=== PATIENT | female | born 1985 | race Caucasian/White ===

== ENCOUNTER 2018-04-18 21:07 | Emergency (ER) | payer OTHER ==
[2018-04-18 21:17] VITALS: TEMP 98.8
[2018-04-18] MEDS ORDERED: SODIUM CHLORIDE 0.9% 1,000 ML IV STA (21:22)
[2018-04-18 22:02] LABS: Basophils % (A) 0 %; Eosinophils # (A) 0.2 k/uL (0-0.7); Eosinophils % (A) 2 %; HCT 38.9 % (34.0-46.0); HGB 12.5 gm/dL (11.4-16.0); Lymphocytes % (A) 26 %; MCHC 32.2 g/dL (31.0-37.0); MCV 90.2 fL (80.0-100.0); Monocytes # (A) 0.3 k/uL (0-1.0); Monocytes % (A) 4 %; Neutrophils % (A) 66 %; Platelet Count 165 k/uL (150-450); RBC 4.31 m/uL (3.80-5.40); RDW 12.9 % (11.5-15.5); WBC 7.5 k/uL (3.8-10.6)
[2018-04-18 22:12] LABS: ALT 23 U/L (9-52); AST 30 U/L (14-36); Albumin 4.1 g/dL (3.5-5.0); Alkaline Phosphatase 70 U/L (38-126); Anion Gap 7 mmol/L; Blood Urea Nitrogen 11 mg/dL (7-17); Calcium 9.1 mg/dL (8.4-10.2); Carbon Dioxide 23 mmol/L (22-30); Chloride 111 mmol/L (98-107); Glucose 93 mg/dL (74-99); Magnesium 1.8 mg/dL (1.6-2.3); Sodium 141 mmol/L (137-145); Total Bilirubin 0.4 mg/dL (0.2-1.3); Total Protein 6.9 g/dL (6.3-8.2)
[2018-04-18 22:16] LABS: D-Dimer 0.29 mg/L FEU (<0.60); INR 1.1 (<1.2); Partial Thromboplastin Time 26.4 sec (22.0-30.0); Prothrombin Time 10.3 sec (9.0-12.0)
--- NOTE | 2018-04-18 22:29 | XR ---
EXAMINATION TYPE: XR chest 2V DATE OF EXAM: 04/18/2018 COMPARISON: 07/28/2016 HISTORY: Chest pain TECHNIQUE: Frontal and lateral views of the chest are obtained. FINDINGS: Heart and mediastinum are normal. Lungs are clear of consolidation. Costophrenic angles ar e clear. There are chest leads. Bony thorax is intact. IMPRESSION: No active cardiopulmonary disease. No significant change.
[2018-04-18 22:55] VITALS: BP 122/66; PULSE 95; RESP 18
--- NOTE | 2018-04-18 23:29 | ED ---
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 She presents the emergency department today for evaluation of palpitations chest pain. Patient reports that earlier in the day she began experiencing some palpitations, she then noted she had a little bit of pressure in her left chest radiating to her neck. This persisted throughout the evening which made her somewhat anxious so she came to the ER for evaluation. Patient reports she feels as though her heart is racing, this has not happened to her since she had her ablation 2 years ago. Patient denies any recent fevers, chills, nausea, vomiting, shortness of breath , diaphoresis or lightheadedness. The patient also states that she did drink some tea today and she is not usually a caffeine drinker, she also expresses concern that she may be somewhat dehydrated. Review the patient has no known cardiac history. She has no history of coronary artery disease, [place]. She is on control and she is a smoker. She has no recent immobilizations, no swelling of her lower extremities, no history of DVT or PE. - Related Data Home Medications Medication Instructions Recorded Confirmed No Known Home Medications 04/18/18 04/18/18 Allergies Allergy/AdvReac Type Severity Reaction Status Date / Time Penicillins Allergy Rash/Hives Verified 04/18/18 21:17 Review of Systems ROS Statement: Those systems with pertinent positive or pertinent negative responses have been documented in the HPI. ROS Other: All systems not noted in ROS Statement are negative. Past Medical History Additional Past Medical History / Comment(s): Tong Bunch White, Cardiac Ablation History of Any Multi-Drug Resistant Organisms: None Reported Past Surgical History: Appendectomy Additional Past Surgical History / Comment(s): Patient has had a cone biopsy the cervix and she is also had a cardiac ablation. Past Anesthesia/Blood Transfusion Reactions: Postoperative Nausea & Vomiting ( PONV) Past Psychological History: No Psychological Hx Reported Smoking Status: Current every day smoker Past Alcohol Use History: Occasional Past Drug Use History: None Reported - Past Family History Mother Family Medical History: Thyroid Disorder Additional Family Medical History / Comment(s): Hypothryoid General Exam - General Exam Comments Initial Comments: GENERAL: Patient is well-developed and well-nourished. Patient is nontoxic and well- hydrated and is in no distress. HENT: Normocephalic, Atraumatic. Neck is soft and supple. No significant lymphadenopathy is noted. Oropharynx is clear. Moist mucous membranes. Neck has full range of motion without eliciting any pain. EYES: The sclera were anicteric and conjunctiva were pink and moist. Extraocular movements were intact and pupils were equal round and reactive to light. Eyelids were unremarkable. PULMONARY: Unlabored respirations. Good breath sounds bilaterally. No audible rales rhonchi or wheezing was noted. CARDIOVASCULAR: There is a regular rate and rhythm without any murmurs gallops or rubs. Heart rate in the 90s upon initial evaluation, extremities warm and well-perfused with strong radial DP and PT pulses bilaterally ABDOMEN: Soft and nontender with normal bowel sounds. SKIN: Skin is clear with no lesions or rashes and otherwise unremarkable. NEUROLOGIC: Patient is alert and oriented x3. Cranial nerves II through XII are grossly intact. Motor and sensory are also intact. Normal speech, volume and content. Symmetrical smile. MUSCULOSKELETAL: Normal extremities with adequate strength and full range of motion. No lower extremity swelling or edema. No calf tenderness. LYMPHATICS: No significant lymphadenopathy is noted PSYCHIATRIC: Normal psychiatric evaluation. Limitations: no limitations Limitations: no limitations Course Vital Signs 04/18/18 04/18/18 21:15 22:53 Temperature 98.8 F Pulse Rate 109 H 95 Respiratory 20 18 Rate Blood Pressure 152/79 122/66 O2 Sat by Pulse 100 98 Oximetry EKG Findings - EKG Comments: EKG Findings:: EKG obtained at 2122, rate is 101, rhythm is sinus tachycardia, there is a normal axis, there are normal intervals, IL 124, QRS 104, QTC is 464 , there is no sloping or slurring of the IL, there is not a short IL, there is no evidence of WPW on this EKG. When compared to previous this EKG does not have the shortened IL and upsloping of the IL segment noted in previous EKGs. No evidence of acute ischemia or infarction. Medical Decision Making - Medical Decision Making She was seen and evaluated, history is obtained from patient and review of medical record Steroids and palpitations has a history of diabetes PW which was ablated 2 years ago. Has not had any symptoms since that time. KG was sinus tachycardia no evidence of dirty PW noted on this EKG. Patient does take oral control and is a cigarette smoker. Cardiac workup as well as d-dimer was ordered 1 L IV fluid was given The patient was reevaluated after IV fluids her heart rate has improved to the 80s to 90s, she reports no further palpitations, she does express concern she may have been dehydrated Labs and imaging were reviewed, troponin, d-dimer negative, normal kidney function, normal electrolytes Results were discussed with the patient who expresses relief and is comfortable with the plan for discharge home. Patient dates that she usually sees her junior network engineer once a year and is due to see him in May, she will call his office on Thursday to establish in her follow-up. All questions pertaining care were answered, return parameters were discussed patient was discharged home in stable condition. - Lab Data Result diagrams: 04/18/18 21:45 04/18/18 21:45 Lab Results 04/18/18 04/18/18 04/18/18 Range/Units 21:45 21:45 21:45 WBC 7.5 (3.8-10.6) k/uL RBC 4.31 (3.80-5.40) m/uL Hgb 12.5 (11.4-16.0) gm/dL Hct 38.9 (34.0-46.0) % MCV 90.2 (80.0-100.0) fL MCH 29.0 (25.0-35.0) pg MCHC 32.2 (31.0-37.0) g/dL RDW 12.9 (11.5-15.5) % Plt Count 165 (150-450) k/uL Neutrophils % 66 % Lymphocytes % 26 % Monocytes % 4 % Eosinophils % 2 % Basophils % 0 % Neutrophils # 5.0 (1.3-7.7) k/uL Lymphocytes # 2.0 (1.0-4.8) k/uL Monocytes # 0.3 (0-1.0) k/uL Eosinophils # 0.2 (0-0.7) k/uL Basophils # 0.0 (0-0.2) k/uL PT 10.3 (9.0-12.0) sec INR 1.1 (<1.2) APTT 26.4 (22.0-30.0) sec D-Dimer 0.29 (<0.60) mg/L FEU Sodium 141 (137-145) mmol/L Potassium 4.0 (3.5-5.1) mmol/L Chloride 111 H (98-107) mmol/L Carbon Dioxide 23 (22-30) mmol/L Anion Gap 7 mmol/L BUN 11 (7-17) mg/dL Creatinine 0.74 (0.52-1.04) mg/dL Est GFR (CKD-EPI)AfAm >90 (>60 ml/min/1.73 sqM) Est GFR (CKD-EPI)NonAf >90 (>60 ml/min/1.73 sqM) Glucose 93 (74-99) mg/dL Calcium 9.1 (8.4-10.2) mg/dL Magnesium 1.8 (1.6-2.3) mg/dL Total Bilirubin 0.4 (0.2-1.3) mg/dL AST 30 (14-36) U/L ALT 23 (9-52) U/L Alkaline Phosphatase 70 (38-126) U/L Troponin I (0.000-0.034) ng/mL Total Protein 6.9 (6.3-8.2) g/dL Albumin 4.1 (3.5-5.0) g/dL TSH 2.550 (0.465-4.680) mIU/L 04/18/18 Range/Units 21:45 WBC (3.8-10.6) k/uL RBC (3.80-5.40) m/uL Hgb (11.4-16.0) gm/dL Hct (34.0-46.0) % MCV (80.0-100.0) fL MCH (25.0-35.0) pg MCHC (31.0-37.0) g/dL RDW (11.5-15.5) % Plt Count (150-450) k/uL Neutrophils % % Lymphocytes % % Monocytes % % Eosinophils % % Basophils % % Neutrophils # (1.3-7.7) k/uL Lymphocytes # (1.0-4.8) k/uL Monocytes # (0-1.0) k/uL Eosinophils # (0-0.7) k/uL Basophils # (0-0.2) k/uL PT (9.0-12.0) sec INR (<1.2) APTT (22.0-30.0) sec D-Dimer (<0.60) mg/L FEU Sodium (137-145) mmol/L Potassium (3.5-5.1) mmol/L Chloride (98-107) mmol/L Carbon Dioxide (22-30) mmol/L Anion Gap mmol/L BUN (7-17) mg/dL Creatinine (0.52-1.04) mg/dL Est GFR (CKD-EPI)AfAm (>60 ml/min/1.73 sqM) Est GFR (CKD-EPI)NonAf (>60 ml/min/1.73 sqM) Glucose (74-99) mg/dL Calcium (8.4-10.2) mg/dL Magnesium (1.6-2.3) mg/dL Total Bilirubin (0.2-1.3) mg/dL AST (14-36) U/L ALT (9-52) U/L Alkaline Phosphatase (38-126) U/L Troponin I <0.012 (0.000-0.034) ng/mL Total Protein (6.3-8.2) g/dL Albumin (3.5-5.0) g/dL TSH (0.465-4.680) mIU/L Disposition Clinical Impression: Palpitations Disposition: HOME SELF-CARE Condition: Stable Instructions: Heart Palpitations (ED) Additional Instructions: Dr. Cummings's office tomorrow for follow-up, return to the ER if you have any worsening palpitations, lightheadedness or any new or concerning symptoms Avoid caffeine, chocolate and stimulants Is patient prescribed a controlled substance at d/c from ED?: No Referrals: Jordan Wasserman MD [Primary Care Provider] - 1-2 days
== END 2018-04-19 00:15 | disposition home or self-care (01) ==
LOC: EC 21:07
DX: R00.2 Palpitations (principal); R07.9 Chest pain, unspecified; R00.0 Tachycardia, unspecified; E11.9 Type 2 diabetes mellitus without complications; F17.210 Nicotine dependence, cigarettes, uncomplicated; Z88.0 Allergy status to penicillin; Z98.890 Other specified postprocedural states
CPT/HCPCS: 36415; 71046; 80053; 83735; 84443; 84484; 85025; 85379; 85610; 85730; 93005; 96360; 96361; 99285

== ENCOUNTER 2018-04-22 11:57 | Observation (INO) | payer OTHER ==
[2018-04-22] MEDS ORDERED: SODIUM CHLORIDE 0.9% 500 ML IV STA (13:11)
--- NOTE | 2018-04-22 13:16 | ED ---
General Adult HPI - General Chief complaint: Dizziness Stated complaint: Dizziness Time Seen by Provider: 04/22/18 12:35 Source: patient, RN notes reviewed Mode of arrival: wheelchair Limitations: no limitations - History of Present Illness Initial comments: This is a 33-year-old female presents to the emergency department complaining of a near syncopal episode today at work. Patient states she was here on Thursday for palpitations. Patient has a past history of Eprjm-Pfrkajrra-Uaeen she has had ablation. Patient states they did a workup on Thursday determined that she was dehydrated she saw Dr. Cummings earlier in the week and he agreed with that. Patient states today she did not feel any palpitations did not have any chest pain or shortness of breath she just started getting lightheaded and thought she might pass out. Patient states they took her vitals and she was not tachycardic. Patient states her sugar was normal as well. Patient denies any recent fever or chills. Patient is however on control pills. Patient denies any calf tenderness or leg swelling. Patient denies any abdominal pain patient denies nausea vomiting diarrhea. Patient states she is a very minimal headache nothing out of the ordinary patient denies any numbness or weakness. - Related Data Home Medications Medication Instructions Recorded Confirmed Control (Unknown Med) 1 tab PO DAILY 04/22/18 04/22/18 Allergies Allergy/AdvReac Type Severity Reaction Status Date / Time Penicillins Allergy Rash/Hives Verified 04/22/18 14:11 Review of Systems ROS Statement: Those systems with pertinent positive or pertinent negative responses have been documented in the HPI. ROS Other: All systems not noted in ROS Statement are negative. Past Medical History Additional Past Medical History / Comment(s): Fortune Parkinsons White, Cardiac Ablation History of Any Multi-Drug Resistant Organisms: None Reported Past Surgical History: Appendectomy Additional Past Surgical History / Comment(s): Patient has had a cone biopsy the cervix and she is also had a cardiac ablation. Past Anesthesia/Blood Transfusion Reactions: Postoperative Nausea & Vomiting ( PONV) Past Psychological History: No Psychological Hx Reported Smoking Status: Current every day smoker Past Alcohol Use History: Occasional Past Drug Use History: None Reported - Past Family History Mother Family Medical History: Thyroid Disorder Additional Family Medical History / Comment(s): Hypothryoid General Exam - General Exam Comments Initial Comments: GENERAL: Patient is well-developed and well-nourished. Patient is nontoxic and well- hydrated and is in mild distress. ENT: Neck is soft and supple. No significant lymphadenopathy is noted. Oropharynx is clear. Moist mucous membranes. Neck has full range of motion without eliciting any pain. EYES: The sclera were anicteric and conjunctiva were pink and moist. Extraocular movements were intact and pupils were equal round and reactive to light. Eyelids were unremarkable. PULMONARY: Unlabored respirations. Good breath sounds bilaterally. No audible rales rhonchi or wheezing was noted. CARDIOVASCULAR: There is a regular rate and rhythm without any murmurs gallops or rubs. ABDOMEN: Soft and nontender with normal bowel sounds. SKIN: Skin is clear with no lesions or rashes and otherwise unremarkable. NEUROLOGIC: Patient is alert and oriented x3. Cranial nerves II through XII are grossly intact. Motor and sensory are also intact. Normal speech, volume and content. Symmetrical smile. MUSCULOSKELETAL: Normal extremities with adequate strength and full range of motion. LYMPHATICS: No significant lymphadenopathy is noted PSYCHIATRIC: Normal psychiatric evaluation. Limitations: no limitations Course Vital Signs 04/22/18 12:35 Temperature 98.6 F Pulse Rate 82 Respiratory 18 Rate Blood Pressure 125/83 O2 Sat by Pulse 99 Oximetry Medical Decision Making - Medical Decision Making EKG shows normal sinus rhythm at 75 bpm DC interval is 94 QRS is 114 QT interval 44 QTC is 451. Patient has a delta wave which is consistent with Taisha -Parkinson-White. - Lab Data Result diagrams: 04/22/18 13:20 04/22/18 13:20 Lab Results 04/22/18 04/22/18 04/22/18 Range/Units 13:20 13:20 13:20 WBC 6.3 (3.8-10.6) k/uL RBC 4.36 (3.80-5.40) m/uL Hgb 12.8 (11.4-16.0) gm/dL Hct 38.6 (34.0-46.0) % MCV 88.4 (80.0-100.0) fL MCH 29.5 (25.0-35.0) pg MCHC 33.3 (31.0-37.0) g/dL RDW 12.8 (11.5-15.5) % Plt Count 166 (150-450) k/uL Neutrophils % 75 % Lymphocytes % 19 % Monocytes % 3 % Eosinophils % 2 % Basophils % 0 % Neutrophils # 4.7 (1.3-7.7) k/uL Lymphocytes # 1.2 (1.0-4.8) k/uL Monocytes # 0.2 (0-1.0) k/uL Eosinophils # 0.1 (0-0.7) k/uL Basophils # 0.0 (0-0.2) k/uL PT (9.0-12.0) sec INR (<1.2) APTT (22.0-30.0) sec Sodium 143 (137-145) mmol/L Potassium 4.8 (3.5-5.1) mmol/L Chloride 113 H (98-107) mmol/L Carbon Dioxide 23 (22-30) mmol/L Anion Gap 7 mmol/L BUN 7 (7-17) mg/dL Creatinine 0.68 (0.52-1.04) mg/dL Est GFR (CKD-EPI)AfAm >90 (>60 ml/min/1.73 sqM) Est GFR (CKD-EPI)NonAf >90 (>60 ml/min/1.73 sqM) Glucose 90 (74-99) mg/dL Calcium 9.3 (8.4-10.2) mg/dL Magnesium 2.0 (1.6-2.3) mg/dL Total Bilirubin 0.5 (0.2-1.3) mg/dL AST 20 (14-36) U/L ALT 16 (9-52) U/L Alkaline Phosphatase 63 (38-126) U/L Total Protein 6.8 (6.3-8.2) g/dL Albumin 3.9 (3.5-5.0) g/dL Urine Color Urine Appearance (Clear) Urine pH (5.0-8.0) Ur Specific [place] (1.001-1.035) Urine Protein (Negative) Urine Glucose (UA) (Negative) Urine Ketones (Negative) Urine Blood (Negative) Urine Nitrite (Negative) Urine Bilirubin (Negative) Urine Urobilinogen (<2.0) mg/dL Ur Leukocyte Esterase (Negative) Urine HCG, Qual Not Detected (Not Detectd) 04/22/18 04/22/18 Range/Units 13:20 13:20 WBC (3.8-10.6) k/uL RBC (3.80-5.40) m/uL Hgb (11.4-16.0) gm/dL Hct (34.0-46.0) % MCV (80.0-100.0) fL MCH (25.0-35.0) pg MCHC (31.0-37.0) g/dL RDW (11.5-15.5) % Plt Count (150-450) k/uL Neutrophils % % Lymphocytes % % Monocytes % % Eosinophils % % Basophils % % Neutrophils # (1.3-7.7) k/uL Lymphocytes # (1.0-4.8) k/uL Monocytes # (0-1.0) k/uL Eosinophils # (0-0.7) k/uL Basophils # (0-0.2) k/uL PT 10.5 (9.0-12.0) sec INR 1.1 (<1.2) APTT 24.5 (22.0-30.0) sec Sodium (137-145) mmol/L Potassium (3.5-5.1) mmol/L Chloride (98-107) mmol/L Carbon Dioxide (22-30) mmol/L Anion Gap mmol/L BUN (7-17) mg/dL Creatinine (0.52-1.04) mg/dL Est GFR (CKD-EPI)AfAm (>60 ml/min/1.73 sqM) Est GFR (CKD-EPI)NonAf (>60 ml/min/1.73 sqM) Glucose (74-99) mg/dL Calcium (8.4-10.2) mg/dL Magnesium (1.6-2.3) mg/dL Total Bilirubin (0.2-1.3) mg/dL AST (14-36) U/L ALT (9-52) U/L Alkaline Phosphatase (38-126) U/L Total Protein (6.3-8.2) g/dL Albumin (3.5-5.0) g/dL Urine Color Light Yellow Urine Appearance Clear (Clear) Urine pH 7.0 (5.0-8.0) Ur Specific [place] 1.007 (1.001-1.035) Urine Protein Negative (Negative) Urine Glucose (UA) Negative (Negative) Urine Ketones Negative (Negative) Urine Blood Negative (Negative) Urine Nitrite Negative (Negative) Urine Bilirubin Negative (Negative) Urine Urobilinogen <2.0 (<2.0) mg/dL Ur Leukocyte Esterase Negative (Negative) Urine HCG, Qual (Not Detectd) Disposition Clinical Impression: Near syncope, Hifbl-Bpsvsdrmj-Wdgdh (WPW) pattern Disposition: ADMITTED IP TO THIS HOSP Is patient prescribed a controlled substance at d/c from ED?: No Referrals: Jordan Wasserman MD [Primary Care Provider] - 1-2 days Time of Disposition: 14:28
[2018-04-22 14:01] LABS: Basophils % (A) 0 %; Eosinophils # (A) 0.1 k/uL (0-0.7); Eosinophils % (A) 2 %; HCT 38.6 % (34.0-46.0); HGB 12.8 gm/dL (11.4-16.0); Lymphocytes # (A) 1.2 k/uL (1.0-4.8); Lymphocytes % (A) 19 %; MCH 29.5 pg (25.0-35.0); MCHC 33.3 g/dL (31.0-37.0); MCV 88.4 fL (80.0-100.0); Monocytes # (A) 0.2 k/uL (0-1.0); Monocytes % (A) 3 %; Neutrophils # (A) 4.7 k/uL (1.3-7.7); Neutrophils % (A) 75 %; Platelet Count 166 k/uL (150-450); RBC 4.36 m/uL (3.80-5.40); RDW 12.8 % (11.5-15.5); WBC 6.3 k/uL (3.8-10.6)
[2018-04-22 14:03] LABS: Appearance,Urine Clear (Clear); Bilirubin,Urine Negative (Negative); Blood,Urine Negative (Negative); Color,Urine Light Yellow; Glucose,Urine (UA) Negative (Negative); Ketones,Urine Negative (Negative); Leukocyte Esterase,Urine Negative (Negative); Nitrite,Urine Negative (Negative); Protein,Urine Negative (Negative); Specific Gravity,Urine 1.007 (1.001-1.035); Urobilinogen,Urine <2.0 mg/dL (<2.0)
[2018-04-22 14:13] LABS: INR 1.1 (<1.2); Partial Thromboplastin Time 24.5 sec (22.0-30.0); Prothrombin Time 10.5 sec (9.0-12.0)
[2018-04-22 14:17] LABS: ALT 16 U/L (9-52); AST 20 U/L (14-36); Albumin 3.9 g/dL (3.5-5.0); Alkaline Phosphatase 63 U/L (38-126); Anion Gap 7 mmol/L; Blood Urea Nitrogen 7 mg/dL (7-17); Calcium 9.3 mg/dL (8.4-10.2); Carbon Dioxide 23 mmol/L (22-30); Chloride 113 mmol/L (98-107); Glucose 90 mg/dL (74-99); Potassium 4.8 mmol/L (3.5-5.1); Sodium 143 mmol/L (137-145); Total Bilirubin 0.5 mg/dL (0.2-1.3); Total Protein 6.8 g/dL (6.3-8.2)
[2018-04-22 14:30] LABS: Creatine Kinase 121 U/L (30-135)
[2018-04-22] MEDS ORDERED: SODIUM CHLORIDE 0.9% 1,000 ML IV ONE (14:31)
[2018-04-22 14:42] LABS: Creatine Kinase MB 0.5 ng/mL (0.0-2.4); Troponin I <0.012 ng/mL (0.000-0.034)
--- NOTE | 2018-04-22 18:39 | CT ---
EXAMINATION TYPE: CT brain wo con DATE OF EXAM: 04/22/2018 COMPARISON: None HISTORY: Near syncope. CT DLP: 1012.7 mGycm. Automated Exposure Control for Dose Reduction was Utilized. TECHNIQUE: CT scan of the head is performed without contrast. FINDINGS: Ventricles of normal size. There is no mass effect nor midline shift. There is no sign of i ntracranial hemorrhage. The calvarium is intact. IMPRESSION: Negative head CT scan.
--- NOTE | 2018-04-22 21:50 | P.HPIM ---
History of Present Illness H&P Date: 04/22/18 Chief Complaint: Syncope Patient is a 33-year-old female with a known history of ongoing nicotine addiction, WPW syndrome status post ablation in June 2015 and is being followed by cardiology as an outpatient came to ER with complaints of near syncope at work today. Patient felt hot while she was in a meeting and felt like tingling all over the body. Her vision does tend held and could not read as a time. Within a few minutes she felt like passing out. Patient came to ER for further evaluation. Patient went to [facility] and on Thursday and presented to ER on Thursday with increased heart rate. Patient was given IV fluids and was discharged home. Patient was seen by cardiology/EP yesterday. Patient felt okay until morning today. She is patient denied any palpitations this morning. No complaints of chest pain. No nausea vomiting or abdominal pain. No fever no chills. Denied any new medications. Patient does take control pills otherwise. Denied any leg swelling or pain. No nausea vomiting or diarrhea. No cough or sputum production. Currently denied any weakness or numbness or tingling. EKG shows short IA interval and likely delta waves. CT head negative D-dimer not elevated. Review of Systems Constitutional: Patient denies any fever or chills . No generalized weakness or weight loss. Abdomen: Patient denied nausea vomiting and diarrhea and abdominal pain. Cardiovascular: Patient denies any chest pain or short of breath no palpitations. Respiratory: patient denied any cough is from production. No shortness of breath Neurologic: Patient denied any numbness or tingling headache. Musculoskeletal: Patient denies any complaints of joint swelling or deformity. Skin: Negative Psychiatric: Negative Endocrine: No heat or cold intolerance. No recent weight gain. Genitourinary: No dysuria or hematuria. All other 14 point ROS negative except the above Past Medical History Past Medical History: Pneumonia Additional Past Medical History / Comment(s): Fortune Parkinsons White, Cardiac Ablation , anx/depression, pne age 14 History of Any Multi-Drug Resistant Organisms: None Reported Past Surgical History: Appendectomy Additional Past Surgical History / Comment(s): Patient has had a cone biopsy the cervix and she is also had a cardiac ablation. Past Anesthesia/Blood Transfusion Reactions: Postoperative Nausea & Vomiting ( PONV) Smoking Status: Current every day smoker - Past Family History Father Family Medical History: Hyperlipidemia Mother Family Medical History: Thyroid Disorder Additional Family Medical History / Comment(s): Hypothryoid ,bipolar,hiatal hernia, obesity had gastric sleeve sx Medications and Allergies Home Medications Medication Instructions Recorded Confirmed Type Control (Unknown Med) 1 tab PO DAILY 04/22/18 04/22/18 History Allergies Allergy/AdvReac Type Severity Reaction Status Date / Time Penicillins Allergy Rash/Hives Verified 04/22/18 14:11 Physical Exam Vitals: Vital Signs Temp Pulse Pulse Pulse Pulse Resp BP 04/22/18 19:30 98.3 F 81 16 04/22/18 16:17 98.0 F 72 79 78 18 04/22/18 15:30 84 18 04/22/18 12:35 98.6 F 82 18 125/83 BP BP BP Pulse Ox 04/22/18 19:30 108/66 98 04/22/18 16:17 121/77 122/76 115/72 99 04/22/18 15:30 04/22/18 12:35 99 Intake and Output 04/22/18 04/22/18 04/22/18 06:59 14:59 22:59 Intake Total 800 Balance 800 Intake: Oral 800 Other: Weight 90.718 kg 90.5 kg PHYSICAL EXAMINATION: Patient is lying in the bed comfortably, no acute distress, awake alert and oriented.. HEENT: Normocephalic. Neck is supple. Pupils reactive. Nostrils clear. Oral cavity is moist. Ears reveal no drainage. Neck reveals no JVD, carotid bruits, or thyromegaly. CHEST EXAMINATION: Trachea is central. Symmetrical expansion. Lung moreno clear to auscultation and percussion. CARDIAC: Normal S1, S2 with no gallops. No murmurs ABDOMEN: Soft. Bowel sounds normal. No organomegaly. No abdominal bruits. Extremities: reveal no edema. No clubbing or cyanosis Neurologically awake, alert, oriented x3 with well-coordinated movements. No focal deficits noted Skin: No rash or skin lesions. Psychiatric: Coperative. Nonsuicidal Musculoskeletal: No joint swelling or deformity. Normal range of motion. Results CBC & Chem 7: 04/22/18 13:20 04/22/18 13:20 Labs: Abnormal Lab Results - Last 24 Hours (Table) 04/22/18 Range/Units 13:20 Chloride 113 H (98-107) mmol/L Thrombosis Risk Factor Assmnt - DVT/VTE Prophylaxis DVT/VTE Prophylaxis: Pharmacologic Prophylaxis ordered Assessment and Plan Assessment: Near syncope likely cardiogenic/arrhythmia. 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 We'll continue the telemetry monitoring. EP evaluation. CT head is negative. Orthostatics normal. D- dimer is elevated. Further recommendations based on the clinical course. Smoking cessation has been counseled extensively. Time with Patient: Greater than 30
[2018-04-23 07:52] VITALS: PULSE 75; TEMP 98.1
--- NOTE | 2018-04-23 09:10 | P.CRDCN ---
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 Last Thursday, patient was running a marathon. Thursday, patient felt lightheaded and dizzy and went to the emergency room. She also felt that her heart was beating fast with heart rates up to 120 to 130. Patient was seen in the emergency room and was treated with IV fluids for suspected dehydration. See was seen by Dr. Cummings in the office last Thursday. Patient was clinically stable at the time. Yesterday, patient was in a meeting. She suddenly started feeling dizzy and also tingling all over the body. She developed tunnel vision. She also could not comprehend what she was visualizing. Did not have any palpitations. Apparently her vital signs are stable. At the time. The symptoms lasted for an hour or so. She was brought to the emergency room. Her EKG showed sinus rhythm without any significant arrhythmias. Patient has been stable since admission. Her symptoms appear to be noncardiac. The possibility of TIA to be considered. We' ll recommend a neurology evaluation. If her neurological workup is negative, may consider treating ALEE to rule out possibility of PFO. After neurological evaluation, if stable, patient could be discharged home. If necessary outpatient ALEE will be arranged by Dr. Cummings Review of Systems As per the chart Past Medical History Past Medical History: Pneumonia Additional Past Medical History / Comment(s): Fortune Parkinsons White, Cardiac Ablation , anx/depression, pne age 14 History of Any Multi-Drug Resistant Organisms: None Reported Past Surgical History: Appendectomy Additional Past Surgical History / Comment(s): Patient has had a cone biopsy the cervix and she is also had a cardiac ablation. Past Anesthesia/Blood Transfusion Reactions: Postoperative Nausea & Vomiting ( PONV) Smoking Status: Current every day smoker - Past Family History Father Family Medical History: Hyperlipidemia Mother Family Medical History: Thyroid Disorder Additional Family Medical History / Comment(s): Hypothryoid ,bipolar,hiatal hernia, obesity had gastric sleeve sx Medications and Allergies Home Medications Medication Instructions Recorded Confirmed Type Control (Unknown Med) 1 tab PO DAILY 04/22/18 04/22/18 History Allergies Allergy/AdvReac Type Severity Reaction Status Date / Time Penicillins Allergy Rash/Hives Verified 04/22/18 14:11 Physical Exam Vitals: Vital Signs Temp Pulse Pulse Pulse Pulse Resp BP 04/23/18 07:35 98.1 F 75 18 04/23/18 04:00 16 04/23/18 03:05 98.5 F 70 16 04/23/18 00:00 16 04/22/18 23:35 98.5 F 85 16 04/22/18 20:00 18 04/22/18 19:30 98.3 F 81 16 04/22/18 16:17 98.0 F 72 79 78 18 04/22/18 15:30 84 18 04/22/18 12:35 98.6 F 82 18 125/83 BP BP BP Pulse Ox 04/23/18 07:35 104/63 99 04/23/18 04:00 04/23/18 03:05 92/56 98 04/23/18 00:00 04/22/18 23:35 106/69 98 04/22/18 20:00 04/22/18 19:30 108/66 98 04/22/18 16:17 121/77 122/76 115/72 99 04/22/18 15:30 04/22/18 12:35 99 Intake and Output 04/22/18 04/23/18 04/23/18 22:59 06:59 14:59 Intake Total 800 Balance 800 Intake: Oral 800 Other: # Voids 1 Weight 90.5 kg GENERAL EXAM: Patient is alert and oriented and doesn't appear to be in any acute distress HEENT: Normocephalic. Normal reaction of pupils, equal size, normal range of extraocular motion. No erythema or exudates in the throat. NECK: No masses, no nuchal rigidity. CHEST: No chest wall deformity. LUNGS: Equal air entry with no crackles or wheeze. HEART: S1 and S2 normal with no audible mumurs or gallops. Regular rhythm, femorals equal on both sides.. ABDOMEN: No hepatosplenomegaly, normal bowel sounds, no guarding or rigidity. SKIN: No rashes CENTRAL NERVOUS SYSTEM: No focal deficits. EXTREMITIES: No cyanosis, clubbing or edema. Results 04/22/18 13:20 04/22/18 13:20 Cardiac Enzymes 04/22/18 04/22/18 Range/Units 13:20 13:20 AST 20 (14-36) U/L CK-MB (CK-2) 0.5 (0.0-2.4) ng/mL Troponin I <0.012 (0.000-0.034) ng/mL Coagulation 04/22/18 Range/Units 13:20 PT 10.5 (9.0-12.0) sec APTT 24.5 (22.0-30.0) sec CBC 04/22/18 Range/Units 13:20 WBC 6.3 (3.8-10.6) k/uL RBC 4.36 (3.80-5.40) m/uL Hgb 12.8 (11.4-16.0) gm/dL Hct 38.6 (34.0-46.0) % Plt Count 166 (150-450) k/uL Comprehensive Metabolic Panel 04/22/18 Range/Units 13:20 Sodium 143 (137-145) mmol/L Potassium 4.8 (3.5-5.1) mmol/L Chloride 113 H (98-107) mmol/L Carbon Dioxide 23 (22-30) mmol/L BUN 7 (7-17) mg/dL Creatinine 0.68 (0.52-1.04) mg/dL Glucose 90 (74-99) mg/dL Calcium 9.3 (8.4-10.2) mg/dL AST 20 (14-36) U/L ALT 16 (9-52) U/L Alkaline Phosphatase 63 (38-126) U/L Total Protein 6.8 (6.3-8.2) g/dL Albumin 3.9 (3.5-5.0) g/dL Intake and Output 04/22/18 04/23/18 04/23/18 22:59 06:59 14:59 Intake Total 800 Balance 800 Intake: Oral 800 Other: # Voids 1 Weight 90.5 kg 04/22/18 13:20 04/22/18 13:20 EKG Interpretations (text) Sinus rhythm with questionable delta wave which is stable compared to the post ablation EKGs Assessment and Plan (1) TIA (transient ischemic attack) Current Visit: Yes Status: Acute Code(s): G45.9 - TRANSIENT CEREBRAL ISCHEMIC ATTACK, UNSPECIFIED SNOMED Code(s): 056434019 (2) Hwcon-Egentamyy-Nwafg (WPW) pattern Current Visit: Yes Status: Acute Code(s): I45.6 - PRE-EXCITATION SYNDROME SNOMED Code(s): 51464364 Plan: I would recommend neurological evaluation. After cleared by neurology, patient could be discharged home from [facility] standpoint. Follow-up with the Dr. Cummings. Patient may be constricted for ALEE as an outpatient
[2018-04-23 11:40] VITALS: BP 105/64; RESP 16
--- NOTE | 2018-04-23 13:19 | US ---
EXAMINATION TYPE: US carotid duplex BILAT DATE OF EXAM: 04/23/2018 COMPARISON: NONE CLINICAL HISTORY: near Syncope. EXAM MEASUREMENTS: RIGHT: Peak Systolic Velocity (PSV) cm/sec ----- Right CCA: 154.9 ----- Right ICA: 87.4 ----- Right ECA: 96.2 ICA/CCA ratio: 0.6 RIGHT: End Diastole cm/sec ----- Right CCA: 38.6 ----- Right ICA: 30.9 ----- Right ECA: 10.8 LEFT: Peak Systolic Velocity (PSV) cm/sec ----- Left CCA: 150.8 ----- Left ICA: 90.7 ----- Left ECA: 76.0 ICA/CCA ratio: 0.6 LEFT: End Diastole cm/sec ----- Left CCA: 28.3 ----- Left ICA: 31.7 ----- Left ECA: 8.9 VERTEBRALS (direction of flow): Right Vertebral: Antegrade Left Vertebral: Antegrade Rhythm: Normal Grayscale images show no significant focal plaque at carotid bulb level bilaterally. There is increas ed peak systolic velocity in bilateral common carotid arteries however noted. Underlying hypertension is suspected. Correlate clinically. IMPRESSION: Probable underlying uncontrolled hypertension. No significant focal plaque or stenosis a t carotid bulb level. Criteria for Assigning % of Stenosis / Diameter reduction (Estimation based on the indirect measurements of the internal carotid artery velocities (ICA PSV). 1. Normal (no stenosis)=ICA PSV < 125 cm/s: ratio < 2.0: ICA EDV<40 cm/s. 2. Less than 50% stenosis=ICA PSV < 125 cm/s: ratio < 2.0: ICA EDV<40 cm/s. 3. 50 to 69% stenosis=ICA PSV of 125 to 230 cm/s: ration 2.0 ? 4.0: ICA EDV 40-100 cm/s. 4. Greater than 70% stenosis to near occlusion= ICA PSV > 230 cm/s: ratio > 4.0: ICA EDV > 100 cm/s. 5. Near occlusion= ICA PSV velocities may be low or undetectable: variable ratio and ICA EDV. 6. Total occlusion=unable to detect flow.
--- NOTE | 2018-04-23 15:35 | P.CNNES ---
History of Present Illness Consult date: 04/23/18 Requesting physician: Celena Conrad Reason for Consult: near syncope History of Present Illness: patient is a pleasant 33-year-old female who is being evaluated by the neurology service on 04/23/2018 per the request of Dr. Conrad for near syncope. Patient has history of [place]avag-Vhyawolod-Vpkdx syndrome and is status post ablation about 2 years ago. Patient did run a 5K last Thursday and on Thursday became lightheaded and came to the emergency room. It was determined patient was dehydrated and was given fluids and sent home. Patient did see Dr. Vu during the week and was deemed stable. Patient had episode at work yesterday where she felt lightheaded, hot, felt like her heart was racing, had tunnel vision and felt as if she was going to pass out. Patient came to the emergency room for further evaluation. Patient denies any lateralizing weakness. She does state she had a period of approximately 3 minutes where she could not comprehend what was being said nor could she read the words on her paper. She's had no recurrence of these symptoms since admission. Patient was seen by cardiology and cleared.vital signs on admission were temperature 98.6, pulse 82, respiratory rate 18, blood pressure 125/83, oxygen saturation 99% on room air. Labs on admission were unremarkable.EKG showed normal sinus rhythm with a rate of 75.Computed tomography scan of the brain was negative for any acute process. Carotid Doppler showed no significant stenosis. At the time of my evaluation, patient's resting comfortably in bed and appears to be in no acute distress. Family is at the bedside. Review of Systems REVIEW OF SYSTEMS: Otherwise unremarkable and noncontributory. Past Medical History Past Medical History: Pneumonia Additional Past Medical History / Comment(s): Fortune Parkinsons White, Cardiac Ablation , anx/depression, pne age 14 History of Any Multi-Drug Resistant Organisms: None Reported Past Surgical History: Appendectomy Additional Past Surgical History / Comment(s): Patient has had a cone biopsy the cervix and she is also had a cardiac ablation. Past Anesthesia/Blood Transfusion Reactions: Postoperative Nausea & Vomiting ( PONV) Smoking Status: Current every day smoker - Past Family History Father Family Medical History: Hyperlipidemia Mother Family Medical History: Thyroid Disorder Additional Family Medical History / Comment(s): Hypothryoid ,bipolar,hiatal hernia, obesity had gastric sleeve sx Medications and Allergies Home Medications Medication Instructions Recorded Confirmed Type Control (Unknown Med) 1 tab PO DAILY 04/22/18 04/22/18 History Allergies Allergy/AdvReac Type Severity Reaction Status Date / Time Penicillins Allergy Rash/Hives Verified 04/22/18 14:11 Physical Examination - Vital Signs Vital Signs: Vital Signs Temp Pulse Pulse Pulse Pulse Resp BP 04/23/18 11:39 98.1 F 75 16 105/64 04/23/18 08:00 18 04/23/18 07:35 98.1 F 75 18 04/23/18 04:00 16 04/23/18 03:05 98.5 F 70 16 04/23/18 00:00 16 04/22/18 23:35 98.5 F 85 16 04/22/18 20:00 18 04/22/18 19:30 98.3 F 81 16 04/22/18 16:17 98.0 F 72 79 78 18 04/22/18 15:30 84 18 BP BP BP Pulse Ox 04/23/18 11:39 97 04/23/18 08:00 04/23/18 07:35 104/63 99 04/23/18 04:00 04/23/18 03:05 92/56 98 04/23/18 00:00 04/22/18 23:35 106/69 98 04/22/18 20:00 04/22/18 19:30 108/66 98 04/22/18 16:17 121/77 122/76 115/72 99 04/22/18 15:30 Intake and Output 04/23/18 04/23/18 04/23/18 06:59 14:59 22:59 Intake Total 240 Balance 240 Intake: Oral 240 Other: # Voids 1 PHYSICAL EXAM: GENERAL APPEARANCE: Patient is a well-developed, female who appears to be in no acute distress. HEENT: Normocephalic, atraumatic, no facial asymmetry is seen. Neck is supple with no masses felt. CARDIOVASCULAR: Regular rate and rhythm. ABDOMEN: Nontender, nondistended. EXTREMITIES: Show no edema or clubbing. NEUROLOGICAL EXAM:Patient is awake, alert, and oriented 3. Speech and language are normal. Strength is full in all 4 extremities. Sensory exam is normal to light touch in all 4 extremities. No facial asymmetry is seen on cranial nerve testing. No tremors or seizure-like activity noted. Results - Laboratory Findings CBC and BMP: 04/22/18 13:20 04/22/18 13:20 Abnormal Lab Findings: Abnormal Labs 04/22/18 13:20 Chloride 113 H Assessment and Plan Plan: IMPRESSION: 1. Near syncope 2. Questionable TIA 3. History of Hadlh-Kzausxxrz-Jgwka/status post ablation Recommendation: Patient presented with symptoms of receptive and expressive aphasia lasting about 3 minutes. Patient reports feeling very drained afterward. Patient reports being back to baseline at this time. She denies any recurrence of symptoms. Computed tomography scan of the brain was negative for any abnormality. Patient has history of both Parkinson White with ablation approximately 2 years ago. Patient was seen by cardiology and cleared. Transient ischemic attack is certainly in the diagnostic differential. I doubt this is seizure activity. Outpatient workup can be done including MRI of the brain, EEG, lipid panel and serum homocysteine level. I recommend a low-dose aspirin 81 mg daily. She will follow-up in our office within the next week or 2. Patient is stable from a neurological standpoint for discharge. I will continue to follow with you on an as-needed basis. Thank you for allowing me to participate in the care of your patient. Feel free to call with any questions or concerns. I performed an examination of the patient and discussed the management with the CONCRETE PAVING MACHINE OPERATOR. I have reviewed the CONCRETE PAVING MACHINE OPERATOR notes and agree with the findings and plan of care.
[2018-04-24] MEDS ORDERED: ASPIRIN 81 MG PO SCH (09:00)
== END 2018-04-23 16:55 | disposition home or self-care (01) ==
LOC: EC 11:57 → 3OBS 14:32
PROVIDERS: ADMIT Internal Medicine; ATTEND Internal Medicine
DX: G45.9 Transient cerebral ischemic attack, unspecified (principal); R42 Dizziness and giddiness; I45.6 Pre-excitation syndrome; Z88.0 Allergy status to penicillin; F17.200 Nicotine dependence, unspecified, uncomplicated; E78.5 Hyperlipidemia, unspecified; F32.9 Major depressive disorder, single episode, unspecified; Z79.3 Long term (current) use of hormonal contraceptives
CPT/HCPCS: 96360; 96361; 99285; 36415; 93005; 85379; 80053; 82550; 82553; 83735; 84484; 85025; 85610; 85730; 81003; 81025; 93880; 70450; G0378 ×2

== ENCOUNTER → 2018-05-06 | Outpatient (CLI) | payer OTHER ==
--- NOTE | 2018-05-17 19:33 | EEG ---
ELECTROENCEPHALOGRAM REPORT SERVICE: 05/06/2018. REASON FOR TESTING: Dizziness and near syncope. DESCRIPTION OF THE PROCEDURE: This EEG was performed using a 21 channel digital electroencephalograph, following international 10-20 system. DESCRIPTION OF THE RECORDING: From the beginning of the tracing, with patient's eyes closed, the background rhythm was mostly consisting of 10 Hz alpha frequency in the posterior occipital leads. No obvious asymmetry is seen. Photic stimulation was performed with a minimal driving response seen. No pathological waves were elicited. Hyperventilation was performed with no buildup of amplitude seen. Again, no pathological waves were elicited. The patient does reach stage II of sleep during the tracing and occasional sleep spindles are seen. No epileptiform discharges were seen. Her EKG lead showed a regular rate and rhythm. INTERPRETATION: This asleep and awake EEG can be considered within normal limits. There is no asymmetry seen. No epileptiform discharges were noticed. The absence of epileptiform discharges does not rule out the diagnosis of epilepsy; therefore clinical correlation is recommended. Thank you, Dr. Wasserman for allowing me to participate in the care of your patient. If you have any questions, please feel free to contact me. [email or web address] / IJN: [id number] /
== END | disposition home or self-care (01) ==
LOC: NEUROMAIN 12:45
PROVIDERS: ATTEND Psychiatry & Neurology Neurology
DX: R41.0 Disorientation, unspecified (principal); R41.3 Other amnesia
CPT/HCPCS: 95819

== ENCOUNTER → 2018-05-19 | Outpatient (CLI) | payer OTHER ==
--- NOTE | 2018-05-20 05:35 | MR ---
EXAMINATION TYPE: MR brain wo con DATE OF EXAM: 05/19/2018 COMPARISON: CT brain April 22, 2018 HISTORY: Near Syncope per patient, TIA per order. TECHNIQUE: Multiplanar, multisequence imaging of the brain and brainstem is performed without IV cont rast. FINDINGS: Diffusion weighted images demonstrate no evidence of a recent infarct or other diffusion abnormality. There is no extraaxial fluid collection or significant white matter signal abnormality. The ventricu lar system and cisternal spaces are normal in size and appearance. The brain volume is age appropria te. Midline structures demonstrate normal morphology. The craniocervical junction appears within normal limits. Normal vascular flow voids are present. Some distortion at the level of the globes is present . Visualized paranasal sinuses are clear. IMPRESSION: Unremarkable study.
== END | disposition home or self-care (01) ==
LOC: RADMRIMAIN 18:20
PROVIDERS: ATTEND Nurse Practitioner Acute Care
DX: G45.9 Transient cerebral ischemic attack, unspecified (principal)
CPT/HCPCS: 70551

== ENCOUNTER → 2018-09-17 | Outpatient (CLI) | payer OTHER ==
--- NOTE | 2018-09-17 10:04 | US ---
EXAMINATION TYPE: Transabdominal DATE OF EXAM: 11/03/17 COMPARISON: NONE CLINICAL HISTORY: 46.91 BLEEDING. Spotting last night, red in color, EXAM PERFORMED: OBTA EXAM MEASUREMENTS: GESTATIONAL AGE / DATING Physician Established: (8 weeks/3 days) EDC: 04/26/2019 Dates by LMP: LMP unknown Dates by First Scan: No previous this is first scan Dates by Current Scan for: (8 weeks/5 days) EDC: 04/24/2019 MATERNAL ANATOMY Uterus: 12.5 x 8.6 x 6.1cm Right Ovary: not seen due to bowel gas Left Ovary: 3.1 x 2.8 x 2.7cm Post CDS / Adnexa: wnl Presence of free fluid: no Presence of corpus luteal cyst: yes left = 2.2cm Presence of subchorionic bleed: 3.0cm curvilinear posterior implantation bleed. This occupies approxi mately 25% the gestational sac diameter. GESTATION / SURVEY CRL: 2.1cm (8 weeks/5 days) MSD: wnl Yolk Sac (normal less than 6mm): not seen Heart Rate: 178 bpm Rhythm: Normal IUP: Viable IUP Date of LMP: unknown Beta HcG (if available): not available * tech impression given to Jaswant at office IMPRESSION: 1. Single live intrauterine with a calculated sonographic age of 8 weeks and 5 days and est imated date of delivery of 04/24/2019, concordant with menstrual age. 2. 3.0 cm implantation bleed occupying approximately 25% the gestational sac diameter. Note the heart rate is upper limits of normal.
== END | disposition home or self-care (01) ==
LOC: RADUSWWP 09:05
PROVIDERS: ATTEND Obstetrics & Gynecology
DX: O46.91 Antepartum hemorrhage, unspecified, first trimester (principal); Z3A.08 8 weeks gestation of pregnancy
CPT/HCPCS: 36415; 76801; 84702; 86850; 86900; 86901

== ENCOUNTER → 2018-10-20 | Outpatient (CLI) | payer OTHER ==
[2018-10-20 09:18] LABS: HCT 35.9 % (34.0-46.0); HGB 11.6 gm/dL (11.4-16.0); MCHC 32.4 g/dL (31.0-37.0); MCV 89.3 fL (80.0-100.0); Mean Platelet Volume 9.1; Platelet Count 130 k/uL (150-450); RBC 4.02 m/uL (3.80-5.40); RDW 13.6 % (11.5-15.5); WBC 6.8 k/uL (3.8-10.6)
[2018-10-20 17:30] LABS: Hemoglobin A1C 5.1 % (4.0-6.0)
[2018-10-20 17:59] LABS: HIV 1 AB Non-Reactive (Non-Reactive); HIV AB P24 Non-Reactive (Non-Reactive); HIV P24 AG Non-Reactive (Non-Reactive)
== END | disposition home or self-care (01) ==
LOC: LABWHC1 07:51
PROVIDERS: ATTEND Obstetrics & Gynecology
DX: Z34.81 Encounter for supervision of other normal pregnancy, first trimester (principal); Z3A.00 Weeks of gestation of pregnancy not specified
CPT/HCPCS: 36415; 82950; 83036; 85027; 86762; 86780; 86850; 86900; 86901; 87086; 87340; 87390

== ENCOUNTER 2019-04-04 11:34 | Outpatient (CLI) | payer OTHER ==
[2019-04-04 12:50] VITALS: BP 122/62; PULSE 88; RESP 16; TEMP 97.9
--- NOTE | 2019-04-04 13:07 | US ---
EXAMINATION TYPE: US OB >= 14 wk fetus DATE OF EXAM: 04/04/2019 COMPARISON: None CLINICAL HISTORY: no FHTNo heart tones.Growth and heart tones only per Dr. Galan. Doctor presen t during exam. TECHNIQUE: Transabdominal (TA) GESTATIONAL AGE / DATING Physician Established: (37 weeks/0 days) EDC: 04/24/2019 Dates by Current Scan: (37 weeks/4 days) EDC: 04/21/2019 SURVEY IUP: Single BIOMETRY PRESENTATION: Breech BPD: 9.65 cm 39 weeks / 3 days HC: 35.06 cm 40 weeks / 6 days AC: 36.93 cm 40 weeks / 6 days FL: 6.67 cm 34 weeks / 2 days ESTIMATED WEIGHT IN GRAMS: 3774 grams ESTIMATED WEIGHT IN LBS/OZ: 8 lbs. 5 oz. HC/AC: 0.95cm Normal FL/AC: 18.06 cm Abnormal HEART RATE: No heart tones. demise no heart tones. IMPRESSION: Sonographic findings of demise as no heart tones are seen on the examination. In the submitted images only minimal amniotic fluid is seen. It is noted that the ordering physician was present at the time of the examination.
--- NOTE | 2019-04-07 13:38 | P.MSEPDOC ---
Presenting Problems - Arrival Data Date of Arrival on Unit: 04/04/19 Time of Arrival on Unit: 11:34 Mode of Transport: Ambulatory - Complaint OB-Reason for Admission/Chief Complaint: Decreased Movement Comment: No movement since 0000 Medical History - Information : 4 Para: 3 Term: 3 : 0 Abortions: Spontaneous or Elective: 0 Number of Living Children: 3 - Gestational Age Gestational Age by NEIL (wks/days): 36 Weeks and 6 Days - History Complications: Smoker Review of Systems - Review of Systems Constitutional: No problems Breast: No problems ENT: No problems Cardiovascular: No problems Respiratory: No problems Gastrointestinal: No problems Genitourinary: No problems Musculoskeletal: No problems Neurological: No problems Skin: No problems Vital Signs - Temperature Temperature: 97.9 F Temperature Source: Oral - Pulse Right Sitting Brachial Pulse Rate: 88 Pulse Assessment Method: Automatic Cuff - Respirations Respiratory Rate: 16 Oxygen Delivery Method: Room Air O2 Sat by Pulse Oximetry: 96 - Blood Pressure Right Arm Sitting Blood Pressure: 122/62 Blood Pressure Mean: 82 Blood Pressure Source: Automatic Cuff Medical Screen Scoring (Pre) - Cervical Exam Dilation: 1-3 cm = 1 Effacement: Exam Deferred Membranes: Intact - Uterine Contractions Frequency: > 5 minutes apart = 1 Duration: > 40 seconds = 2 Intensity: N/A - Maternal Vital Signs Maternal Temperature: N/A Maternal Blood Pressure: N/A Signs of Preeclampsia: N/A Maternal Respirations: N/A - Maternal Trauma Maternal Trauma: N/A - Assessment - Baby A NST: Unable to detect FHT's = 10 - Total Score - Baby A Total Score - Baby A: 14 - Total Score - Baby B Total Score - Baby B: 4 - Total Score - Baby C Total Score - Baby C: 4 - Level of Risk - Baby A Level of Risk - Baby A: High (10+) - Level of Risk - Baby B Level of Risk - Baby B: Low (0-5) - Level of Risk - Baby C Level of Risk - Baby C: Low (0-5) Physician Notification (Pre) - Physician Notified Physician Notified Date: 04/04/19 Physician Notified Time: 11:47 Physician/Practitioner Notifed:: Joce Spoke With: Joce New Order Received: Yes - Notification Comment Comment: No FHT detected via peritronic US; Bedside US ordered Medical Screen Scoring (Post) - Assessment - Baby A NST: Unable to detect FHT's = 10 - Total Score Total Score - Baby A: 10 - Post Treatment Level of Risk Post Treatment Level of Risk - Baby A: High (10+) Physician Notification (Post) - Physician Notified Physician Notified Date: 04/04/19 Physician Notified Time: 12:35 Physician/Practitioner Notified:: Joce Spoke With: Joce New Order Received: Yes - Notification Comment Comment: No FHT via US; pt requesting to be d/c home and return in an hour for a primary section r/t presentation Disposition - Disposition OB Disposition: Discharge to home, Written follow up instructions reviewed Discharge Date: 04/04/19 Discharge Time: 12:45 I agree with the RN Medical Screening Exam: Yes Risk & Benefit of care provided described in d/c instruction: Yes Diagnosis: DECREASED MOVEMENTS, THIRD TRIMESTER, UNSP
== END 2019-04-04 12:45 | disposition home or self-care (01) ==
LOC: FBPOP 11:34
PROVIDERS: ATTEND Obstetrics & Gynecology Obstetrics
DX: Z53.9 Procedure and treatment not carried out, unspecified reason (principal)
CPT/HCPCS: 76805; 99213

== ENCOUNTER 2019-04-04 14:38 | Inpatient (IN) | payer OTHER ==
[2019-04-04] MEDS ORDERED: CITRIC ACID-SODIUM CITRATE 15 ML CUP PO ONE (14:47)
[2019-04-04 15:22] VITALS: BMI 31.8
[2019-04-04] MEDS ORDERED: LACTATED RINGERS 1,000 ML IV SCH (15:30)
--- NOTE | 2019-04-04 15:30 | P.HPOB ---
History of Present Illness H&P Date: 04/04/19 Chief Complaint: IUFD 36 6/7 weeks, breech, polyhydramnios This is a 34 year-old female 4 para 3003, at 36 and 6/sevenths weeks with an estimated due date of 04/26 based on last menstrual period and consistent with 19 week ultrasound. Patient presents to labor and delivery with complaints of no movement since approximately 12:30 last evening. Patient denies contractions, but notes increasing pelvic pressure, denies vaginal bleeding, or loss of fluid. Patient is a known patient of Dr. Marie and has been receiving routine care since the first trimester. Patient has a history of macrosomia 2, polyhydramnios for which she was undergoing wee kly NSTs, was noted to be large for gestational age at 35 weeks with greater than the 99th percentile. On blood work she has a blood type of A+, rubella is immune, RPR nonreactive, B surface antigen negative, HIV negative, she did pass her one-hour Glucola with a result of 89, group beta strep was negative on 03/22. Review of Systems Constitutional: Denies chills, Denies fatigue, Denies fever Cardiovascular: Reports leg edema Respiratory: Denies dyspnea Gastrointestinal: Denies constipation, Denies diarrhea, Denies nausea, Denies vomiting Genitourinary: Reports Past Medical History Past Medical History: Pneumonia Additional Past Medical History / Comment(s): Fortune Parkinsons White, Cardiac Ablation , anx/depression, pne age 14 History of Any Multi-Drug Resistant Organisms: None Reported Past Surgical History: Appendectomy Additional Past Surgical History / Comment(s): Patient has had a cone biopsy the cervix and she is also had a cardiac ablation. Past Anesthesia/Blood Transfusion Reactions: Postoperative Nausea & Vomiting (PONV) Smoking Status: Current every day smoker - Past Family History Father Family Medical History: Hyperlipidemia Mother Family Medical History: Thyroid Disorder Additional Family Medical History / Comment(s): Hypothryoid ,bipolar,hiatal hernia, obesity had gastric sleeve sx Medications and Allergies Home Medications Medication Instructions Recorded Confirmed Type Escitalopram [Lexapro] 10 mg PO DAILY 04/04/19 04/04/19 History Ferrous Sulfate [Iron] 325 mg PO DAILY 04/04/19 04/04/19 History Omeprazole [PriLOSEC] 40 mg PO DAILY 04/04/19 04/04/19 History Pnv No.95/Ferrous Fum/Folic AC 1 each PO DAILY 04/04/19 04/04/19 History [ Multivitamin Tablet] Allergies Allergy/AdvReac Type Severity Reaction Status Date / Time Penicillins Allergy Rash/Hives Verified 04/04/19 11:49 Exam Osteopathic Statement: *. No significant issues noted on an osteopathic structural exam other than those noted in the History and Physical/Consult. Targeted physical exam was performed in this date in general this is a well- nourished well-developed female in obvious tearful distress, her breathing is noted to be nonlabored her heart has regular rate and rhythm her abdomen is gravid and appropriate for gestational age, no heart tones were noted on Doppler/ultrasound was obtained to confirm no heart tones. On cervical exam she was 1 thick high. Assessment and Plan (1) IUFD (intrauterine ) Current Visit: Yes Status: Acute Code(s): GWK4198 - SNOMED Code(s): 747500230 (2) 36 weeks gestation of Current Visit: Yes Status: Acute Code(s): Z3A.36 - 36 WEEKS GESTATION OF SNOMED Code(s): 51292874 Plan: This pleasant 34-year-old 4 para 3003 with now known diagnosis of intrauterine demise was counseled on options for delivery. Given size of the , breech presentation and polyhydramnios she has elected to proceed with primary low transverse section. Patient understands that she will be in the hospital for a few days post . Multiple questions were answered and we will proceed once labs and anesthesia is notified.
[2019-04-04 15:36] LABS: Basophils % (A) 0 %; Eosinophils # (A) 0.1 k/uL (0-0.7); Eosinophils % (A) 1 %; HCT 36.8 % (34.0-46.0); HGB 12.4 gm/dL (11.4-16.0); INR 0.9 (<1.2); Lymphocytes # (A) 1.6 k/uL (1.0-4.8); Lymphocytes % (A) 13 %; MCH 30.7 pg (25.0-35.0); MCHC 33.8 g/dL (31.0-37.0); MCV 90.7 fL (80.0-100.0); Mean Platelet Volume 9.9; Monocytes # (A) 0.4 k/uL (0-1.0); Monocytes % (A) 3 %; Neutrophils % (A) 82 %; Partial Thromboplastin Time 23.5 sec (22.0-30.0); Platelet Count 147 k/uL (150-450); Prothrombin Time 9.6 sec (9.0-12.0); RBC 4.05 m/uL (3.80-5.40); RDW 15.6 % (11.5-15.5); WBC 12.2 k/uL (3.8-10.6)
[2019-04-04] MEDS ORDERED: NALBUPHINE 10 MG/ML (1 ML AMP) ONE (15:54)
[2019-04-04] MEDS ORDERED: MORPHINE SULFATE (PF) 0.3 MG/0.3 ML SYR ONE (15:54)
[2019-04-04] MEDS ORDERED: fentaNYL (PF) 50 MCG/ML 2 ML AMP ONE (15:54)
[2019-04-04] MEDS ORDERED: ceFAZolin 1,000 MG VIAL ONE (15:54)
[2019-04-04] MEDS ORDERED: ONDANSETRON 4 MG/2 ML VIAL ONE (15:54)
[2019-04-04] MEDS ORDERED: OXYTOCIN 10 UNIT/ML 1 ML VIAL ONE (15:54)
[2019-04-04] MEDS ORDERED: PHENYLEPHRINE-0.9% NACL SYG 1 MG/10 ML SYRINGE ONE (15:54)
[2019-04-04] MEDS ORDERED: diphenhydrAMINE 50 MG/ML 1 ML VIAL IVP PRN ×3 (16:24→16:40)
[2019-04-04] MEDS ORDERED: NALOXONE 0.4 MG/ML 1 ML VIAL IV PRN ×2 (16:24→16:40)
[2019-04-04] MEDS ORDERED: MORPHINE SULFATE 4 MG/ML SYRINGE IVP PRN (16:24)
[2019-04-04] MEDS ORDERED: NALBUPHINE 10 MG/ML (1 ML AMP) IV PRN (16:24)
[2019-04-04] MEDS ORDERED: KETOROLAC 30 MG/ML 1 ML VIAL IVP PRN (16:24)
[2019-04-04] MEDS ORDERED: METOCLOPRAMIDE 5 MG/ML 2 ML VIAL IVP PRN (16:40)
[2019-04-04] MEDS ORDERED: diphenhydrAMINE 50 MG CAP PO PRN (16:40)
[2019-04-04] MEDS ORDERED: diphenhydrAMINE 25 MG CAP PO PRN (16:40)
[2019-04-04] MEDS ORDERED: ONDANSETRON 4 MG/2 ML VIAL IVP PRN (16:40)
[2019-04-04] MEDS ORDERED: ACETAMINOPHEN TAB 325 MG TAB PO PRN (16:40)
[2019-04-04] MEDS ORDERED: ZOLPIDEM 5 MG TAB PO PRN (16:40)
[2019-04-04] MEDS ORDERED: OXYTOCIN 20 UNITS/1000 ML NS 1,000 ML IV SCH (16:45)
--- NOTE | 2019-04-04 16:55 | P.OP ---
Date of Procedure: 04/04/19 Preoperative Diagnosis: Intrauterine demise at 36-6/7 weeks, breech presentation, LGA, polyhydramnios Postoperative Diagnosis: Same Procedure(s) Performed: Primary low transverse section Anesthesia: spinal Surgeon: Angelika Hobson Corner Bead Operator #1: Harpreet Pike Estimated Blood Loss (ml): 600 IV fluids (ml): 900 Urine output (ml): 300 Pathology: other (Placenta) Condition: stable Disposition: PACU Indications for Procedure: IUFD at 36 and 6/sevenths weeks, breech presentation, LGA greater than the 99th percentile, polyhydramnios Patient was counseled on delivery options given LGA/breech presentation decision was made to proceed with primary low transverse section. Operative Findings: Male infant in transverse presentation, weight of 8 lbs. 7 oz. at 1613. Polyhydramnios noted upon rupture of membranes, true knot noted in umbilical cord. Description of Procedure: Patient was taken operating suite where spinal anesthesia was performed by the anesthesia department. Once anesthesia was found to be adequate she was prepped and draped in normal fashion. A Panchal catheter had been placed during this process. A Pfannenstiel skin incision was made with the scalpel and carried through the underlying layer of fascia. The fascia was then incised in the midline and extended laterally. The superior aspect of the fascial incision was grasped amy clamps, elevated and underlying rectus muscles dissected off sharply. Attention was then turned to the patient's inferior aspect of the fascial incision which was grasped amy clamps, elevated and the underlying rectus muscle was dissected off sharply once again. The rectus muscles were in the midline the peritoneum was identified and entered. This incision was then extended superiorly and inferiorly with good visualization of bladder. The bladder blade was then inserted into the pelvis. The vesicouterine peritoneum was identified and a bladder flap was created using sharp and blunt dissection. Hysterotomy incision was made with the scalpel and amniotomy was performed, a copious amount of clear fluid was obtained. The hips were noted off the midline and the fetus noted to be in a transverse presentation the infants hips brought toward the incision and elevated through the uterine incision. The was delivered in a breech presentation. The umbilical cord was doubly clamped and cut and the infant was handed off to awaiting RN. The placenta was then removed manually and the uterus was cleared of all clots and debris, of note a TRUE KNOT was noted in the umbilical cord. The uterus was delivered through the abdominal incision and the hysterotomy site was closed with Vicryl in a running locked fashion from one lateral edge the other lateral edge a second suture was used to obtain hemostasis. Small amount of bleeding was noted on the left-hand side of the incision therefore a [id number] suture was used to obtain hemostasis. The pelvis was then copiously irrigated and the uterus was returned to the abdomen. The hysterotomy site was inspected and hemostasis was appreciated. The rectus muscles were then reapproximated and the fascial incision was closed with 0 Vicryl in a running fashion from one lateral edge the other. The subcutaneous tissue was then irrigated hemostasis was appreciated and the skin was closed with 4-0 Vicryl subcuticular fashion. Steri-Strips and sterile dressings were applied. All counts were correct 2 patient tolerated procedure well and was taken back to her suite in stable condition.
[2019-04-04] MEDS: LACTATED RINGERS 1,000 ML IV SCH (16:57)
[2019-04-04] MEDS ORDERED: ACETAMINOPHEN IV (For NPO) 1,000 MG in EMPTY BAG 1 BAG IVPB ONE (17:00)
[2019-04-04] MEDS ORDERED: IBUPROFEN IV 800 MG in SODIUM CHLORIDE 0.9% 250 ML IV ONE (18:00)
[2019-04-04] MEDS ORDERED: SENNOSIDES-DOCUSATE SODIUM 1 EACH TAB PO SCH (20:00)
[2019-04-05] MEDS: LACTATED RINGERS 1,000 ML IV SCH (00:43)
[2019-04-05] MEDS: HYDROcodone/APAP 5-325MG 1 EACH TAB PO PRN ×3 (03:52→15:43)
[2019-04-05 07:51] LABS: Basophils % (A) 0 %; Eosinophils # (A) 0.1 k/uL (0-0.7); Eosinophils % (A) 1 %; HCT 32.4 % (34.0-46.0); HGB 10.8 gm/dL (11.4-16.0); Lymphocytes # (A) 1.5 k/uL (1.0-4.8); Lymphocytes % (A) 11 %; MCH 30.3 pg (25.0-35.0); MCHC 33.2 g/dL (31.0-37.0); MCV 91.3 fL (80.0-100.0); Mean Platelet Volume 10.6; Monocytes # (A) 0.5 k/uL (0-1.0); Monocytes % (A) 4 %; Neutrophils # (A) 11.4 k/uL (1.3-7.7); Neutrophils % (A) 84 %; Platelet Count 153 k/uL (150-450); RBC 3.55 m/uL (3.80-5.40); RDW 14.9 % (11.5-15.5); WBC 13.6 k/uL (3.8-10.6)
[2019-04-05] MEDS ORDERED: IBUPROFEN 600 MG TAB PO PRN (08:49)
--- NOTE | 2019-04-05 08:55 | P.DS ---
Providers Date of admission: 04/04/19 14:38 Expected date of discharge: 04/05/19 Attending physician: Blake Marie Primary care physician: Stated None - Discharge Diagnosis(es) (1) 36 weeks gestation of Current Visit: Yes Status: Acute (2) IUFD (intrauterine ) Current Visit: Yes Status: Acute Hospital Course: The patient is a 34-year-old 4 para 3003 admitted at 36-6/7 weeks by good dating parameters. She is admitted with report of decreased movement for approximately 12-18 hours. On labor and delivery, she was diagnosed with intrauterine demise. She had had an otherwise uncomplicated to this point aside from the diagnosis of polyhydramnios for which she had undergone routine testing which was reassuring on a weekly basis. She additionally was found to have a fetus a growing a greater than 99th percentile though she has a history of large infants. As this infant was found to be presenting in breech to transverse presentation, she was taken the operating room where she underwent primary low-transverse section and was delivered of a nonviable 8 lbs. 7 oz. male . The etiology of the demise appeared to be a true knot in the cord. The patient's postoperative course was unremarkable with vital signs remaining stable and her temperature was afebrile throughout. She was deemed stable for discharge on the evening of postoperative day #1 was discharged home to follow-up in the office in 2 weeks for an incision check and 6 weeks routinely. Discharge instructions included calling for any significantly increased bleeding or foul-smelling lochia, significantly increased fever abdominal pain, perineal complaints, breast complaints, incisional complaints, emotional concerns, or anything else that concerned her. She was additionally instructed to have nothing in the vagina for at least 6 weeks time to include intercourse and to abstain from any heavy lifting over the same period of time. She was last instructed to do no driving until off of all pain medications or 2 weeks' time, whichever came first. She understood her instructions and agrees to follow up as noted above. Discharge medications included a prescription for [place] 5/325 mg, 1-2 by mouth every 6 hours when necessary pain, #20 dispensed with no refills. She is additionally to use [id number] analgesic pain medications as needed. Maternal blood type is A+ and rubella status is immune. Discharge hemoglobin and hematocrit were 10.8 and 32.4 respectively. Procedures: #1. Obstetrical ultrasound #2. Primary low-transverse section Patient Condition at Discharge: Stable Plan - Discharge Summary Discharge Rx Participant: Yes New Discharge Prescriptions: No Action Omeprazole [PriLOSEC] 40 mg PO DAILY Escitalopram [Lexapro] 10 mg PO DAILY Pnv No.95/Ferrous Fum/Folic AC [ Multivitamin Tablet] 1 each PO DAILY Ferrous Sulfate [Iron] 325 mg PO DAILY Discharge Medication List Escitalopram [Lexapro] 10 mg PO DAILY 04/04/19 [History] Ferrous Sulfate [Iron] 325 mg PO DAILY 04/04/19 [History] Omeprazole [PriLOSEC] 40 mg PO DAILY 04/04/19 [History] Pnv No.95/Ferrous Fum/Folic AC [ Multivitamin Tablet] 1 each PO DAILY 04/04/19 [History] Follow up Appointment(s)/Referral(s): Blake Marie MD [STAFF PHYSICIAN] - 2 Weeks Discharge Disposition: HOME SELF-CARE
[2019-04-05] MEDS ORDERED: PRENATAL VIT-IRON-FOLIC ACID 1 EACH CAP PO SCH (09:00)
[2019-04-05] MEDS ORDERED: ESCITALOPRAM 10 MG TAB PO SCH (09:00)
[2019-04-05] MEDS ORDERED: PANTOPRAZOLE 40 MG TABLET PO SCH (09:00)
[2019-04-05 12:51] VITALS: RESP 16
[2019-04-05 15:50] VITALS: BP 112/56; PULSE 80; TEMP 98.8
[2019-04-06 06:46] LABS: Herpes simplex IgG I Ab <0.01 (< or = 0.90); Herpes simplex IgG II Ab 0.12 (< or = 0.90); Toxoplasma Antibody (IgG) <3.0 IU/mL (<7.2); Toxoplasma Antibody (IgM) <3.0 AU/mL (<8.0)
== END 2019-04-05 17:20 | disposition home or self-care (01) | DRG 788 ==
LOC: 4FBP 14:38
PROVIDERS: ADMIT Obstetrics & Gynecology Obstetrics; ATTEND Obstetrics & Gynecology
PROC: 10D00Z1 Extraction of Products of Conception, Low, Open Approach (ICD-10-PCS; principal; 2019-04-04 16:06)
DX: O36.4XX0 Maternal care for intrauterine death, not applicable or unspecified (principal); O40.3XX0 Polyhydramnios, third trimester, not applicable or unspecified; O32.1XX0 Maternal care for breech presentation, not applicable or unspecified; O36.63X0 Maternal care for excessive fetal growth, third trimester, not applicable or unspecified; O69.2XX0 Labor and delivery complicated by other cord entanglement, with compression, not applicable or unspecified; O99.334 Smoking (tobacco) complicating childbirth; F17.200 Nicotine dependence, unspecified, uncomplicated; O99.62 Diseases of the digestive system complicating childbirth; Z37.1 Single stillbirth; Z3A.36 36 weeks gestation of pregnancy; Z79.899 Other long term (current) drug therapy; Z87.01 Personal history of pneumonia (recurrent); Z88.0 Allergy status to penicillin; Z90.49 Acquired absence of other specified parts of digestive tract; Z81.8 Family history of other mental and behavioral disorders; Z83.49 Family history of other endocrine, nutritional and metabolic diseases
CPT/HCPCS: 76805; 85025; 85384; 85610; 85730; 86644; 86645; 86694; 86695; 86696; 86762; 86777; 86778; 86850; 86900; 86901; 88307; 99213

== ENCOUNTER 2020-02-15 17:35 | Emergency (ER) | payer OTHER ==
[2020-02-15 17:41] VITALS: TEMP 98.1
[2020-02-15] MEDS ORDERED: SODIUM CHLORIDE 0.9% 1,000 ML IV STA ×2 (18:16)
[2020-02-15] MEDS ORDERED: PANTOPRAZOLE 40 MG/10 ML VIAL IVP STA (18:16)
[2020-02-15] MEDS ORDERED: KETOROLAC 30 MG/ML 1 ML VIAL IVP STA (18:19)
[2020-02-15 19:01] LABS: Basophils % (A) 1 %; Eosinophils # (A) 0.2 k/uL (0-0.7); Eosinophils % (A) 3 %; HCT 40.2 % (34.0-46.0); HGB 12.8 gm/dL (11.4-16.0); Lymphocytes # (A) 1.9 k/uL (1.0-4.8); Lymphocytes % (A) 28 %; MCHC 31.9 g/dL (31.0-37.0); MCV 90.8 fL (80.0-100.0); Mean Platelet Volume 9.4; Monocytes # (A) 0.4 k/uL (0-1.0); Monocytes % (A) 6 %; Neutrophils # (A) 4.1 k/uL (1.3-7.7); Neutrophils % (A) 62 %; Platelet Count 184 k/uL (150-450); RBC 4.42 m/uL (3.80-5.40); RDW 13.1 % (11.5-15.5); WBC 6.7 k/uL (3.8-10.6)
[2020-02-15 19:05] LABS: Appearance,Urine Clear (Clear); Bilirubin,Urine Negative (Negative); Blood,Urine Small (Negative); Color,Urine Yellow; Glucose,Urine (UA) Negative (Negative); Ketones,Urine 1+ (Negative); Leukocyte Esterase,Urine Negative (Negative); Mucus,Urine Rare /hpf; Nitrite,Urine Negative (Negative); Protein,Urine Negative (Negative); RBC,Urine <1 /hpf (0-5); Specific Gravity,Urine 1.011 (1.001-1.035); Squamous Epithelial Cell,Urine <1 /hpf (0-4); Urobilinogen,Urine <2.0 mg/dL (<2.0); WBC,Urine 1 /hpf (0-5)
[2020-02-15 19:10] LABS: ALT 16 U/L (4-34); AST 27 U/L (14-36); African American GFR (CKD) >90 (>60 ml/min/1.73 sqM); Albumin 4.4 g/dL (3.5-5.0); Alkaline Phosphatase 100 U/L (38-126); Amylase 32 U/L (30-110); Anion Gap 7 mmol/L; Blood Urea Nitrogen 8 mg/dL (7-17); Calcium 9.3 mg/dL (8.4-10.2); Carbon Dioxide 23 mmol/L (22-30); Chloride 108 mmol/L (98-107); Glucose 89 mg/dL (74-99); Non-African American GFR(CKD) >90 (>60 ml/min/1.73 sqM); Potassium 4.2 mmol/L (3.5-5.1); Sodium 138 mmol/L (137-145); Total Bilirubin 0.4 mg/dL (0.2-1.3)
--- NOTE | 2020-02-15 19:15 | XR ---
EXAMINATION TYPE: XR KUB DATE OF EXAM: 02/15/2020 COMPARISON: NONE HISTORY: Pain TECHNIQUE: Single supine KUB image of the abdomen is obtained FINDINGS: Small bowel demonstrates no evidence for dilatation or air fluid levels. Gas and fecal material is seen in non-distended colon. No convincing evidence for pneumoperitoneum. No unusual calcifications. The lung bases are clear. The osseous structures are intact. IMPRESSION: 1. Overall nonobstructive bowel gas pattern.
--- NOTE | 2020-02-15 19:20 | ED ---
Abdominal Pain HPI - General Source: patient, RN notes reviewed, old records reviewed Mode of arrival: wheelchair Limitations: no limitations <Noreen Lyle - Last Filed: 02/15/20 19:48> <Ayla Mathis - Last Filed: 02/15/20 21:11> <Erinn Pond - Last Filed: 02/16/20 23:27> - General Chief Complaint: Abdominal Pain Stated Complaint: Abd pain, dizzy Time Seen by Provider: 02/15/20 17:44 - History of Present Illness Initial Comments: 35-year-old female presents to return today with complaints of cramping upper abdominal pain and a episodes of diaphoresis with an hour prior to arrival. Patient reports that she's had similar episodes that have occurred within the past. Patient states that she's had no significant shortness of breath or chest pain at this time. She reports it seems to be squeezing sharp pain in nature. (Noreen Lyle) - Related Data Home Medications Medication Instructions Recorded Confirmed Omeprazole [PriLOSEC] 40 mg PO HS 04/04/19 02/15/20 Escitalopram [Lexapro] 10 mg PO HS 02/15/20 02/15/20 Vitamin C/Biotin [Hair, Skin and 1 tab PO HS 02/15/20 02/15/20 Nails] Allergies Allergy/AdvReac Type Severity Reaction Status Date / Time Penicillins Allergy Rash/Hives Verified 02/15/20 18:33 Review of Systems ROS Other: All systems not noted in ROS Statement are negative. <Noreen Lyle - Last Filed: 02/15/20 19:48> ROS Other: All systems not noted in ROS Statement are negative. <Ayla Mathis - Last Filed: 02/15/20 21:11> ROS Other: All systems not noted in ROS Statement are negative. <Erinn Pond - Last Filed: 02/16/20 23:27> ROS Statement: Those systems with pertinent positive or pertinent negative responses have been documented in the HPI. Past Medical History Past Medical History: Pneumonia Additional Past Medical History / Comment(s): [place] Parkinsons White, Cardiac Ablation , anx/depression, pne age 14 History of Any Multi-Drug Resistant Organisms: None Reported Past Surgical History: Appendectomy Additional Past Surgical History / Comment(s): Patient has had a cone biopsy the cervix and she is also had a cardiac ablation. Past Anesthesia/Blood Transfusion Reactions: Postoperative Nausea & Vomiting (PONV) Past Psychological History: Anxiety, Depression Smoking Status: Current every day smoker Past Alcohol Use History: Occasional Past Drug Use History: None Reported - Past Family History Father Family Medical History: Hyperlipidemia Mother Family Medical History: Thyroid Disorder Additional Family Medical History / Comment(s): Hypothryoid ,bipolar,hiatal hernia, obesity had gastric sleeve sx <Noreen Lyle - Last Filed: 02/15/20 19:48> General Exam Limitations: no limitations General appearance: alert, in no apparent distress Head exam: Present: atraumatic, normocephalic, normal inspection Eye exam: Present: normal appearance, PERRL, EOMI. Absent: scleral icterus, conjunctival injection, periorbital swelling ENT exam: Present: normal exam, mucous membranes moist Neck exam: Present: normal inspection Respiratory exam: Present: normal lung sounds bilaterally. Absent: respiratory distress, wheezes, rales, rhonchi, stridor Cardiovascular Exam: Present: regular rate, normal rhythm, normal heart sounds. Absent: systolic murmur, diastolic murmur, rubs, gallop, clicks GI/Abdominal exam: Present: soft, tenderness (RUQ tenderness), normal bowel sounds. Absent: distended, guarding, rebound, rigid Extremities exam: Present: normal inspection, full ROM, normal capillary refill. Absent: tenderness, pedal edema, joint swelling, calf tenderness Back exam: Present: normal inspection Neurological exam: Present: alert <Noreen Lyle - Last Filed: 02/15/20 19:48> - General Exam Comments Initial Comments: 35-year-old female. Alert and oriented. (Noreen Lyle) Course Vital Signs 02/15/20 02/15/20 02/15/20 17:39 20:22 21:19 Temperature 98.1 F Pulse Rate 95 85 84 Respiratory 18 16 16 Rate Blood Pressure 114/71 119/68 116/87 O2 Sat by Pulse 99 99 99 Oximetry Medical Decision Making - Lab Data Result diagrams: 02/15/20 18:27 02/15/20 18:27 - Radiology Data Radiology results: report reviewed <Noreen Lyle - Last Filed: 02/15/20 19:48> - Lab Data Result diagrams: 02/15/20 18:27 02/15/20 18:27 <Ayla Mathis - Last Filed: 02/15/20 21:11> - Lab Data Result diagrams: 02/15/20 18:27 02/15/20 18:27 <Erinn Pond - Last Filed: 02/16/20 23:27> - Medical Decision Making 35-year-old female presents today for eval for concern for cramping upper abdominal pain and episode of diaphoresis and sweating when this occurred shortly before arriving to emergency department. Patient hasn't having intermittent episodes such as this for the past few weeks. Has more severe today. At this time patient's labs were reviewed and relatively unremarkable. On reevaluation she still has some right upper quadrant discomfort but is improved after Protonix and Toradol. Discussed further imaging such as ultrasound completed today and Patient is agreeable for this plan. KAVYA Esparza will wait for US findings and likely discharge patient home. (Noreen Lyle) I was available for consultation in the emergency department. The history and physical exam were done by the midlevel provider. I was consulted for this patients care. I reviewed the case with the midlevel provider and based on their presentation of the patient, I agree with the assessment, medical decision making and plan of care as documented. Chart was dictated using [employer] dictation software. Attempts were made to correct any dictation errors however some typographical errors may persist. Patient was seen during a national state of emergency due to the Covid-19 pandemic. (Erinn Pond) - Lab Data Lab Results 02/15/20 02/15/20 02/15/20 Range/Units 18:27 18:27 18: WBC 6.7 (3.8-10.6) k/uL RBC 4.42 (3.80-5.40) m/uL Hgb 12.8 (11.4-16.0) gm/dL Hct 40.2 (34.0-46.0) % MCV 90.8 (80.0-100.0) fL MCH 29.0 (25.0-35.0) pg MCHC 31.9 (31.0-37.0) g/dL RDW 13.1 (11.5-15.5) % Plt Count 184 (150-450) k/uL Neutrophils % 62 % Lymphocytes % 28 % Monocytes % 6 % Eosinophils % 3 % Basophils % 1 % Neutrophils # 4.1 (1.3-7.7) k/uL Lymphocytes # 1.9 (1.0-4.8) k/uL Monocytes # 0.4 (0-1.0) k/uL Eosinophils # 0.2 (0-0.7) k/uL Basophils # 0.0 (0-0.2) k/uL PT 10.4 (9.0-12.0) sec INR 1.0 (<1.2) APTT 26.7 (22.0-30.0) sec Sodium (137-145) mmol/L Potassium (3.5-5.1) mmol/L Chloride (98-107) mmol/L Carbon Dioxide (22-30) mmol/L Anion Gap mmol/L BUN (7-17) mg/dL Creatinine (0.52-1.04) mg/dL Est GFR (CKD-EPI)AfAm (>60 ml/min/1.73 sqM) Est GFR (CKD-EPI)NonAf (>60 ml/min/1.73 sqM) Glucose (74-99) mg/dL Calcium (8.4-10.2) mg/dL Total Bilirubin (0.2-1.3) mg/dL AST (14-36) U/L ALT (4-34) U/L Alkaline Phosphatase (38-126) U/L Troponin I (0.000-0.034) ng/mL Total Protein (6.3-8.2) g/dL Albumin (3.5-5.0) g/dL Amylase (30-110) U/L Lipase (23-300) U/L Urine Color Yellow Urine Appearance Clear (Clear) Urine pH 8.0 (5.0-8.0) Ur Specific [place] 1.011 (1.001-1.035) Urine Protein Negative (Negative) Urine Glucose (UA) Negative (Negative) Urine Ketones 1+ H (Negative) Urine Blood Small H (Negative) Urine Nitrite Negative (Negative) Urine Bilirubin Negative (Negative) Urine Urobilinogen <2.0 (<2.0) mg/dL Ur Leukocyte Esterase Negative (Negative) Urine RBC <1 (0-5) /hpf Urine WBC 1 (0-5) /hpf Ur Squamous Epith Cells <1 (0-4) /hpf Urine Mucus Rare H (None) /hpf 02/15/20 02/15/20 Range/Units 18:27 18:27 WBC (3.8-10.6) k/uL RBC (3.80-5.40) m/uL Hgb (11.4-16.0) gm/dL Hct (34.0-46.0) % MCV (80.0-100.0) fL MCH (25.0-35.0) pg MCHC (31.0-37.0) g/dL RDW (11.5-15.5) % Plt Count (150-450) k/uL Neutrophils % % Lymphocytes % % Monocytes % % Eosinophils % % Basophils % % Neutrophils # (1.3-7.7) k/uL Lymphocytes # (1.0-4.8) k/uL Monocytes # (0-1.0) k/uL Eosinophils # (0-0.7) k/uL Basophils # (0-0.2) k/uL PT (9.0-12.0) sec INR (<1.2) APTT (22.0-30.0) sec Sodium 138 (137-145) mmol/L Potassium 4.2 (3.5-5.1) mmol/L Chloride 108 H (98-107) mmol/L Carbon Dioxide 23 (22-30) mmol/L Anion Gap 7 mmol/L BUN 8 (7-17) mg/dL Creatinine 0.66 (0.52-1.04) mg/dL Est GFR (CKD-EPI)AfAm >90 (>60 ml/min/1.73 sqM) Est GFR (CKD-EPI)NonAf >90 (>60 ml/min/1.73 sqM) Glucose 89 (74-99) mg/dL Calcium 9.3 (8.4-10.2) mg/dL Total Bilirubin 0.4 (0.2-1.3) mg/dL AST 27 (14-36) U/L ALT 16 (4-34) U/L Alkaline Phosphatase 100 (38-126) U/L Troponin I <0.012 (0.000-0.034) ng/mL Total Protein 7.0 (6.3-8.2) g/dL Albumin 4.4 (3.5-5.0) g/dL Amylase 32 (30-110) U/L Lipase 126 (23-300) U/L Urine Color Urine Appearance (Clear) Urine pH (5.0-8.0) Ur Specific [place] (1.001-1.035) Urine Protein (Negative) Urine Glucose (UA) (Negative) Urine Ketones (Negative) Urine Blood (Negative) Urine Nitrite (Negative) Urine Bilirubin (Negative) Urine Urobilinogen (<2.0) mg/dL Ur Leukocyte Esterase (Negative) Urine RBC (0-5) /hpf Urine WBC (0-5) /hpf Ur Squamous Epith Cells (0-4) /hpf Urine Mucus (None) /hpf 02/15/20 19:19 EKG shows normal sinus rhythm. [id number]. Abnormal EKG. Ventricular rate of 89 be symmetric. Pulse 110 ms. QS duration is 114 ms. QT QTc is 390/474 ms. (Noreen Lyle) - Radiology Data KUB of a nonobstructive bowel gas pattern. (Noreen Lyle) Disposition <Noreen Lyle - Last Filed: 02/15/20 19:48> Is patient prescribed a controlled substance at d/c from ED?: No Time of Disposition: 21:11 <Ayla Mathis - Last Filed: 02/15/20 21:11> <Erinn Pond - Last Filed: 02/16/20 23:27> Clinical Impression: RUQ pain, Nausea Disposition: HOME SELF-CARE Condition: Stable Additional Instructions: Please use medication as discussed. Please follow-up with family doctor in the next 2 days, follow up with general surgery outpatient. Please return to emergency room if the symptoms increase or worsen or for any other concerns. Referrals: Jordan Wasserman MD [Primary Care Provider] - 1-2 days Missy Lee MD [STAFF PHYSICIAN] - 1-2 days
[2020-02-15 20:23] VITALS: RESP 16
--- NOTE | 2020-02-15 20:33 | US ---
EXAMINATION TYPE: US gallbladder DATE OF EXAM: 02/15/2020 COMPARISON: NONE CLINICAL HISTORY: RUQ tenderness. RUQ/epigastric tenderness x couple weeks. Worse today. Hx appendect peter. EXAM MEASUREMENTS: Liver Length: 15.7 cm Gallbladder Wall: 0.33 cm CBD: 0.60 cm Right Kidney: 10.3 x 6.0 x 4.9 cm Pancreas: Appears wnl Liver: Appears wnl Gallbladder: Wall measures upper limits of normal 0.33 cm in transverse. Wall measures 0.39 mm in sa gittal plane. Evidence for sonographic Bledsoe's sign: No CBD: Appears wnl Right Kidney: No hydronephrosis or masses seen IMPRESSION: Mild nonspecific gallbladder wall thickening.
[2020-02-15 20:38] LABS: Partial Thromboplastin Time 26.7 sec (22.0-30.0); Prothrombin Time 10.4 sec (9.0-12.0)
[2020-02-15 21:20] VITALS: BP 116/87; PULSE 84
== END 2020-02-15 21:19 | disposition home or self-care (01) ==
LOC: EC 17:35
DX: R10.11 Right upper quadrant pain (principal); R11.0 Nausea; F17.200 Nicotine dependence, unspecified, uncomplicated; F41.9 Anxiety disorder, unspecified; F32.9 Major depressive disorder, single episode, unspecified; Z79.899 Other long term (current) drug therapy; Z88.0 Allergy status to penicillin
CPT/HCPCS: 36415; 93005; 80053; 82150; 83690; 84484; 85025; 85610; 85730; 81001; 74018; 76705; 99285; 96374; 96375; 96361 ×3; J1885; C9113

== ENCOUNTER 2021-03-15 15:58 | Emergency (ER) | payer OTHER ==
[2021-03-15 16:13] VITALS: TEMP 98.7
[2021-03-15 17:12] LABS: Basophils % (A) 0 %; Eosinophils # (A) 0.1 k/uL (0-0.7); Eosinophils % (A) 1 %; HCT 37.5 % (34.0-46.0); HGB 12.6 gm/dL (11.4-16.0); Lymphocytes # (A) 1.9 k/uL (1.0-4.8); Lymphocytes % (A) 22 %; MCH 30.6 pg (25.0-35.0); MCHC 33.6 g/dL (31.0-37.0); MCV 91.1 fL (80.0-100.0); Mean Platelet Volume 9.7; Monocytes # (A) 0.3 k/uL (0-1.0); Monocytes % (A) 4 %; Neutrophils # (A) 6.1 k/uL (1.3-7.7); Neutrophils % (A) 72 %; Platelet Count 157 k/uL (150-450); RBC 4.12 m/uL (3.80-5.40); RDW 12.5 % (11.5-15.5); WBC 8.5 k/uL (3.8-10.6)
[2021-03-15 17:24] LABS: Appearance,Urine Clear (Clear); Bilirubin,Urine Negative (Negative); Blood,Urine Small (Negative); Color,Urine Yellow; Glucose,Urine (UA) Negative (Negative); Ketones,Urine Negative (Negative); Leukocyte Esterase,Urine Negative (Negative); Mucus,Urine Rare /hpf; Nitrite,Urine Negative (Negative); PH, Urine 6.5 (5.0-8.0); Protein,Urine Negative (Negative); RBC,Urine 23 /hpf (0-5); Specific Gravity,Urine 1.013 (1.001-1.035); Squamous Epithelial Cell,Urine 1 /hpf (0-4); Urobilinogen,Urine <2.0 mg/dL (<2.0); WBC,Urine 1 /hpf (0-5)
[2021-03-15 17:25] LABS: ALT 10 U/L (4-34); AST 20 U/L (14-36); African American GFR (CKD) >90 (>60 ml/min/1.73 sqM); Albumin 4.4 g/dL (3.5-5.0); Alkaline Phosphatase 63 U/L (38-126); Anion Gap 9 mmol/L; Blood Urea Nitrogen 4 mg/dL (7-17); Calcium 9.4 mg/dL (8.4-10.2); Carbon Dioxide 23 mmol/L (22-30); Chloride 105 mmol/L (98-107); Glucose 84 mg/dL (74-99); Non-African American GFR(CKD) >90 (>60 ml/min/1.73 sqM); Potassium 3.6 mmol/L (3.5-5.1); Sodium 137 mmol/L (137-145); Total Bilirubin 0.3 mg/dL (0.2-1.3)
--- NOTE | 2021-03-15 17:34 | ED ---
Female Urogenital HPI - General Chief complaint: Vaginal Bleeding Stated complaint: Vaginal bleeding,12wks preg Time Seen by Provider: 03/15/21 16:14 Source: patient Mode of arrival: wheelchair Limitations: no limitations - History of Present Illness Initial comments: Patient is a 36-year-old female presenting to the emergency Department with complaints of vaginal bleeding and abdominal cramping started about 30 minutes prior to arrival. She is currently 12 weeks , . Her MEDICAL SOCIOLOGIST is out of [facility]. She states she does have an ultrasound yesterday, they said there is a small area of bleed, she does not know any further details of this. She denies any vaginal bleeding before today during this . She denies any chest pain or shortness of breath, no cough, no fevers or chills, no dysuria. She's had no further complaints. Her vitals are stable upon arrival. - Related Data Home Medications Medication Instructions Recorded Confirmed Omeprazole Magnesium [PriLOSEC OTC] 20 mg PO HS 03/15/21 03/15/21 Zsd-Dltq-Hdinb Acid 1 cap PO HS 03/15/21 03/15/21 [-U Capsule (formulary)] Allergies Allergy/AdvReac Type Severity Reaction Status Date / Time Penicillins Allergy Rash/Hives Verified 03/15/21 17:29 Review of Systems ROS Statement: Those systems with pertinent positive or pertinent negative responses have been documented in the HPI. ROS Other: All systems not noted in ROS Statement are negative. Past Medical History Past Medical History: Pneumonia Additional Past Medical History / Comment(s): Fortune Parkinsons White, Cardiac Ablation , anx/depression, pne age 14 History of Any Multi-Drug Resistant Organisms: None Reported Past Surgical History: Appendectomy, Cardiac Ablation Additional Past Surgical History / Comment(s): Patient has had a cone biopsy the cervix and she is also had a cardiac ablation. Past Anesthesia/Blood Transfusion Reactions: Postoperative Nausea & Vomiting ( PONV) Past Psychological History: Anxiety, Depression Smoking Status: Current every day smoker Past Alcohol Use History: Occasional Past Drug Use History: None Reported - Past Family History Father Family Medical History: Hyperlipidemia Mother Family Medical History: Thyroid Disorder Additional Family Medical History / Comment(s): Hypothryoid ,bipolar,hiatal hernia, obesity had gastric sleeve sx General Exam - General Exam Comments Initial Comments: GENERAL: Patient is well-developed and well-nourished. Patient is nontoxic and in no acute distress. HEAD: Atraumatic, normocephalic. EYES: Pupils equal round and reactive to light, extraocular movements intact, sclera anicteric, conjunctiva are normal. Eyelids were unremarkable. ENT: TMs normal, nares patent, oropharynx clear without exudates. Moist mucous membranes. NECK: Normal range of motion, supple without lymphadenopathy or JVD. LUNGS: Unlabored respirations. Breath sounds clear to auscultation bilaterally and equal. No wheezes rales or rhonchi. HEART: Regular rate and rhythm without murmurs, rubs or gallops. ABDOMEN: Soft, mildly tender suprapubic and pelvis region. normoactive bowel sounds. No guarding, no rebound. No masses appreciated. MUSCULOSKELETAL: Normal extremities with adequate strength and normal range of motion, no pitting or edema. No clubbing or cyanosis. NEUROLOGICAL: Patient is alert and oriented x 3. Normal speech, normal gait. PSYCH: Normal mood, normal affect. SKIN: Warm, Dry, normal turgor, no rashes or lesions noted. Limitations: no limitations External exam: Present: normal external exam Speculum exam: Present: vaginal bleeding (light in color) Course Vital Signs 03/15/21 03/15/21 16:10 19:02 Temperature 98.7 F Pulse Rate 91 78 Respiratory 20 18 Rate Blood Pressure 109/69 97/55 O2 Sat by Pulse 99 100 Oximetry Medical Decision Making - Medical Decision Making Patient is a 36-year-old female, currently 12 weeks , presenting with vaginal bleeding and cramping started about 30 minutes prior to arrival. , MEDICAL SOCIOLOGIST is out of [facility]. Her vitals are stable. Labs are all within normal limits, urine shows no evidence of infection. Blood type is A+. Ultrasound today shows a viable IUP with estimated age of 12 weeks, heart rate is 160, small subchorionic hemorrhages seen. She has been resting comfortably. Discussed these findings with her. Recommended pelvic rest and to follow-up with her MEDICAL SOCIOLOGIST. She is agreeable to this and is stable for discharge. Case discussed with Dr. Marquez. - Lab Data Result diagrams: 03/15/21 16:50 03/15/21 16:50 Lab Results 03/15/21 03/15/2103/15/21 Range/Units 16:50 16:50 16:50 WBC 8.5 (3.8-10.6) k/uL RBC 4.12 (3.80-5.40) m/uL Hgb 12.6 (11.4-16.0) gm/dL Hct 37.5 (34.0-46.0) % MCV 91.1 (80.0-100.0) fL MCH 30.6 (25.0-35.0) pg MCHC 33.6 (31.0-37.0) g/dL RDW 12.5 (11.5-15.5) % Plt Count 157 (150-450) k/uL MPV 9.7 Neutrophils % 72 % Lymphocytes % 22 % Monocytes % 4 % Eosinophils % 1 % Basophils % 0 % Neutrophils # 6.1 (1.3-7.7) k/uL Lymphocytes # 1.9 (1.0-4.8) k/uL Monocytes # 0.3 (0-1.0) k/uL Eosinophils # 0.1 (0-0.7) k/uL Basophils # 0.0 (0-0.2) k/uL Sodium 137 (137-145) mmol/L Potassium 3.6 (3.5-5.1) mmol/L Chloride 105 (98-107) mmol/L Carbon Dioxide 23 (22-30) mmol/L Anion Gap 9 mmol/L BUN 4 L (7-17) mg/dL Creatinine 0.47 L (0.52-1.04) mg/dL Est GFR (CKD-EPI)AfAm >90 (>60 ml/min/1.73 sqM) Est GFR (CKD-EPI)NonAf >90 (>60 ml/min/1.73 sqM) Glucose 84 (74-99) mg/dL Calcium 9.4 (8.4-10.2) mg/dL Total Bilirubin 0.3 (0.2-1.3) mg/dL AST 20 (14-36) U/L ALT 10 (4-34) U/L Alkaline Phosphatase 63 (38-126) U/L Total Protein 7.0 (6.3-8.2) g/dL Albumin 4.4 (3.5-5.0) g/dL Urine Color Yellow Urine Appearance Clear (Clear) Urine pH 6.5 (5.0-8.0) Ur Specific [place] 1.013 (1.001-1.035) Urine Protein Negative (Negative) Urine Glucose (UA) Negative (Negative) Urine Ketones Negative (Negative) Urine Blood Small H (Negative) Urine Nitrite Negative (Negative) Urine Bilirubin Negative (Negative) Urine Urobilinogen <2.0 (<2.0) mg/dL Ur Leukocyte Esterase Negative (Negative) Urine RBC 23 H (0-5) /hpf Urine WBC 1 (0-5) /hpf Ur Squamous Epith Cells 1 (0-4) /hpf Urine Mucus Rare H (None) /hpf Blood Type Blood Type Recheck Bld Type Recheck Status 03/15/21 Range/Units 16:50 WBC (3.8-10.6) k/uL RBC (3.80-5.40) m/uL Hgb (11.4-16.0) gm/dL Hct (34.0-46.0) % MCV (80.0-100.0) fL MCH (25.0-35.0) pg MCHC (31.0-37.0) g/dL RDW (11.5-15.5) % Plt Count (150-450) k/uL MPV Neutrophils % % Lymphocytes % % Monocytes % % Eosinophils % % Basophils % % Neutrophils # (1.3-7.7) k/uL Lymphocytes # (1.0-4.8) k/uL Monocytes # (0-1.0) k/uL Eosinophils # (0-0.7) k/uL Basophils # (0-0.2) k/uL Sodium (137-145) mmol/L Potassium (3.5-5.1) mmol/L Chloride (98-107) mmol/L Carbon Dioxide (22-30) mmol/L Anion Gap mmol/L BUN (7-17) mg/dL Creatinine (0.52-1.04) mg/dL Est GFR (CKD-EPI)AfAm (>60 ml/min/1.73 sqM) Est GFR (CKD-EPI)NonAf (>60 ml/min/1.73 sqM) Glucose (74-99) mg/dL Calcium (8.4-10.2) mg/dL Total Bilirubin (0.2-1.3) mg/dL AST (14-36) U/L ALT (4-34) U/L Alkaline Phosphatase (38-126) U/L Total Protein (6.3-8.2) g/dL Albumin (3.5-5.0) g/dL Urine Color Urine Appearance (Clear) Urine pH (5.0-8.0) Ur Specific [place] (1.001-1.035) Urine Protein (Negative) Urine Glucose (UA) (Negative) Urine Ketones (Negative) Urine Blood (Negative) Urine Nitrite (Negative) Urine Bilirubin (Negative) Urine Urobilinogen (<2.0) mg/dL Ur Leukocyte Esterase (Negative) Urine RBC (0-5) /hpf Urine WBC (0-5) /hpf Ur Squamous Epith Cells (0-4) /hpf Urine Mucus (None) /hpf Blood Type A Positive Blood Type Recheck A Pos Bld Type Recheck Status No Disposition Clinical Impression: Vaginal bleeding during , Subchorionic bleed Disposition: HOME SELF-CARE Condition: Stable Instructions (If sedation given, give patient instructions): Subchorionic Hemorrhage (ED) Additional Instructions: Please return to the Emergency Department if symptoms worsen or any other concerns. Please follow up with your MEDICAL SOCIOLOGIST. Recommend pelvic rest, no intercourse, no heavy lifting until follow-up with MEDICAL SOCIOLOGIST. Is patient prescribed a controlled substance at d/c from ED?: No Referrals: Jordan Wasserman MD [Primary Care Provider] - 1-2 days Time of Disposition: 18:42
--- NOTE | 2021-03-15 18:25 | US ---
EXAMINATION TYPE: Transabdominal DATE OF EXAM: 03/15/2021 5:13 PM COMPARISON: NONE CLINICAL HISTORY: 12wks preg, vaginal bleeding/cramping x 30 min. cramping and bleeding today, A1 EXAM PERFORMED: OBTA EXAM MEASUREMENTS: GESTATIONAL AGE / DATING Physician Established: (12 weeks/4 days) EDC: 09/23/2021 Dates by LMP: LMP unknown Dates by First Scan: No previous this is first scan Dates by Current Scan for: (12 weeks/1 days) EDC: 09/26/2021 MATERNAL ANATOMY Uterus: 11.7 x 12.2 x 9.1cm Right Ovary: 3.3 x 2.4 x 2.3cm Left Ovary: 2.3 x 1.7 x 1.2cm Post CDS / Adnexa: wnl Presence of free fluid: no Presence of corpus luteal cyst: right ovary = 2.5cm Presence of subchorionic bleed: yes = 2.5 x 2.5 x 1.3cm GESTATION / SURVEY CRL: 6.1cm (12 weeks/4 days) MSD: wnl Yolk Sac (normal less than 6mm): 0.4cm Heart Rate: 160 bpm Rhythm: Normal IUP: Viable IUP Date of LMP: unknown Beta HcG (if available): pending IMPRESSION: Single live intrauterine with estimated age of 12 weeks 1 day and NEIL of 09/26/2019. Small subchorionic hemorrhage seen.
[2021-03-15 19:04] VITALS: BP 97/55; PULSE 78; RESP 18
== END 2021-03-15 19:06 | disposition home or self-care (01) ==
LOC: EC 15:58
DX: O46.91 Antepartum hemorrhage, unspecified, first trimester (principal); Z3A.12 12 weeks gestation of pregnancy
CPT/HCPCS: 36415; 76801; 80053; 81001; 85025; 86900; 86901; 99284

== ENCOUNTER 2022-02-18 15:44 | Emergency (ER) | payer OTHER ==
[2022-02-18 16:03] VITALS: PULSE 120
[2022-02-18] MEDS ORDERED: SODIUM CHLORIDE 0.9% 1,000 ML IV ONE (17:04)
[2022-02-18 17:48] LABS: Basophils % (A) 0 %; Eosinophils # (A) 0.1 k/uL (0-0.7); Eosinophils % (A) 1 %; HCT 38.1 % (34.0-46.0); HGB 12.4 gm/dL (11.4-16.0); Lymphocytes # (A) 1.2 k/uL (1.0-4.8); Lymphocytes % (A) 10 %; MCH 29.2 pg (25.0-35.0); MCHC 32.6 g/dL (31.0-37.0); MCV 89.6 fL (80.0-100.0); Mean Platelet Volume 10.1; Monocytes # (A) 0.5 k/uL (0-1.0); Monocytes % (A) 4 %; Neutrophils # (A) 9.8 k/uL (1.3-7.7); Neutrophils % (A) 84 %; Platelet Count 150 k/uL (150-450); RBC 4.25 m/uL (3.80-5.40); RDW 12.7 % (11.5-15.5); WBC 11.6 k/uL (3.8-10.6)
[2022-02-18 17:56] LABS: ALT 13 U/L (4-34); AST 19 U/L (14-36); African American GFR (CKD) >90 (>60 ml/min/1.73 sqM); Albumin 4.5 g/dL (3.5-5.0); Alkaline Phosphatase 79 U/L (38-126); Anion Gap 8 mmol/L; Blood Urea Nitrogen 6 mg/dL (7-17); Calcium 9.1 mg/dL (8.4-10.2); Carbon Dioxide 23 mmol/L (22-30); Chloride 104 mmol/L (98-107); Glucose 89 mg/dL (74-99); Non-African American GFR(CKD) >90 (>60 ml/min/1.73 sqM); Potassium 4.2 mmol/L (3.5-5.1); Sodium 135 mmol/L (137-145); Total Bilirubin 0.6 mg/dL (0.2-1.3)
[2022-02-18 17:58] LABS: INR 1.1 (<1.2); Partial Thromboplastin Time 25.8 sec (22.0-30.0); Prothrombin Time 11.9 sec (9.0-12.0)
[2022-02-18] MEDS ORDERED: ACETAMINOPHEN TAB 500 MG TAB PO STA (19:00)
--- NOTE | 2022-02-18 19:07 | US ---
EXAMINATION TYPE: Transabdominal DATE OF EXAM: 02/18/2022 6:51 PM COMPARISON: NONE CLINICAL HISTORY: pain. Cramping and heavy bleeding x couple hours EXAM PERFORMED: Transabdominal (TA) EXAM MEASUREMENTS: GESTATIONAL AGE / DATING Physician Established: Not yet established Dates by LMP: (8 weeks/6 days) EDC: 09/24/2022 Dates by First Scan: No previous this is first scan Dates by Current Scan for: No IUP seen at this time MATERNAL ANATOMY Uterus: 11.8 x 6.1 x 7.7cm, thickened endometrium Right Ovary: 2.4 x 1.2 x 1.7cm Left Ovary: 4.1 x 2.2 x 2.4cm Post CDS / Adnexa: small amount of free fluid Presence of free fluid: yes Presence of corpus luteal cyst: left ovary - 1.9cm Presence of subchorionic bleed: no GESTATION / SURVEY IUP: No IUP seen at this time Date of LMP: 12/18/2021 Beta HcG (if available): Not available at time of exam IMPRESSION: The uterus is empty. There is small amount of free fluid in the pelvis. No suspicious adnexal mass se en to suggest ectopic .
[2022-02-18 20:13] LABS: Appearance,Urine Cloudy (Clear); Bacteria,Urine Occasional /hpf; Bilirubin,Urine Negative (Negative); Blood,Urine Large (Negative); Color,Urine Red; Glucose,Urine (UA) Negative (Negative); Ketones,Urine 2+ (Negative); Leukocyte Esterase,Urine Moderate (Negative); Nitrite,Urine Negative (Negative); PH, Urine 5.5 (5.0-8.0); Protein,Urine 2+ (Negative); RBC,Urine >182 /hpf (0-5); Specific Gravity,Urine 1.023 (1.001-1.035); Squamous Epithelial Cell,Urine 9 /hpf (0-4); WBC,Urine 19 /hpf (0-5)
[2022-02-18 20:51] VITALS: TEMP 98.5
[2022-02-18 20:53] VITALS: BP 112/68; RESP 16
[2022-02-18] MEDS ORDERED: cefTRIAXone IN SWFI 1,000 MG/10 ML SYRINGE IVP STA (20:56)
--- NOTE | 2022-02-18 21:18 | ED ---
Female Urogenital HPI - General Chief complaint: Vaginal Bleeding Stated complaint: Vagina Bleeding 8wks preg Source: patient Mode of arrival: wheelchair Limitations: no limitations - History of Present Illness Initial comments: 37-year-old female presents emergency Department with vaginal bleeding. States that she is with a history of 1 still at 37 weeks gestation. She took a test on Father's Day and found out that she was . Currently should be around 7 to 8 weeks along. She plans to follow with a NUTRITION SERVICES ASSISTANT in [place]. She did have her first appointment scheduled for today however did not make it to her appointment because she began having heavy vaginal bleeding. Reports that she is having clotting and soaked through her dress. She does not have any abdominal pain. No vaginal discharge. Denies hematuria or rectal bleeding. No abdominal trauma. Patient found to have a fever in triage. Denies fevers at home, chills, cough, chest pain. No nausea or vomiting. No sick contacts. Patient reports that she feels well except for the bleeding. No other alleviating, precipitating or modifying factors Last Menstrual Period: 12/18/21 - Related Data Home Medications Medication Instructions Recorded Confirmed Tde-Rjdg-Bplmj Acid 1 cap PO HS 03/15/21 02/18/22 [-U Capsule (formulary)] Previous Rx's Medication Instructions Recorded Cephalexin [Keflex] 500 mg PO BID 1 Days #14 cap 02/18/22 Allergies Allergy/AdvReac Type Severity Reaction Status Date / Time Penicillins Allergy Rash/Hives Verified 02/18/22 19:40 Review of Systems ROS Statement: Those systems with pertinent positive or pertinent negative responses have been documented in the HPI. ROS Other: All systems not noted in ROS Statement are negative. Past Medical History Past Medical History: Pneumonia Additional Past Medical History / Comment(s): Fortune Parkinsons White, Cardiac Abl ation , anx/depression, pne age 14 History of Any Multi-Drug Resistant Organisms: None Reported Past Surgical History: Appendectomy, Cardiac Ablation Additional Past Surgical History / Comment(s): Patient has had a cone biopsy the cervix and she is also had a cardiac ablation. Past Anesthesia/Blood Transfusion Reactions: Postoperative Nausea & Vomiting (PONV) Past Psychological History: Anxiety, Depression Smoking Status: Current every day smoker Past Alcohol Use History: Occasional Past Drug Use History: None Reported - Past Family History Father Family Medical History: Hyperlipidemia Mother Family Medical History: Thyroid Disorder Additional Family Medical History / Comment(s): Hypothryoid ,bipolar,hiatal hernia, obesity had gastric sleeve sx General Exam Limitations: no limitations General appearance: alert, in no apparent distress Head exam: Present: atraumatic, normocephalic, normal inspection Eye exam: Present: normal appearance, PERRL, EOMI. Absent: scleral icterus, conjunctival injection, periorbital swelling ENT exam: Present: normal exam, mucous membranes moist Neck exam: Present: normal inspection. Absent: tenderness, meningismus, lymphadenopathy Respiratory exam: Present: normal lung sounds bilaterally. Absent: respiratory distress, wheezes, rales, rhonchi, stridor Cardiovascular Exam: Present: normal rhythm, tachycardia, normal heart sounds. Absent: systolic murmur, diastolic murmur, rubs, gallop, clicks GI/Abdominal exam: Present: soft, normal bowel sounds. Absent: distended, tenderness, guarding, rebound, rigid Speculum exam: Present: vaginal bleeding, tissue (within the vaginal canal) Extremities exam: Present: normal inspection, full ROM, normal capillary refill. Absent: tenderness, pedal edema, joint swelling, calf tenderness Back exam: Present: normal inspection Neurological exam: Present: alert, oriented X3, CN II-XII intact Psychiatric exam: Present: normal affect, normal mood Skin exam: Present: warm, dry, intact, normal color. Absent: rash Course Vital Signs 02/18/22 02/18/22 15:59 20:51 Temperature 101.2 F H 98.5 F Pulse Rate 120 H Respiratory 18 16 Rate Blood Pressure 121/72 112/68 O2 Sat by Pulse 97 Oximetry Medical Decision Making - Medical Decision Making Upon arrival patient was placed into room 7. A thorough history and physical exam was performed. IV is established and laboratory studies are conducted. Hemoglobin is 12.4. Beta Quant 38,000. Urinalysis demonstrates large blood with moderate leukocyte esterase, greater than 182 red blood cells, occasional bacteria. I did perform Covid an influenza swab because of fever which are negative. Ultrasound is performed which demonstrates small amount of free fluid in the pelvis. Uterus is empty. Patient continues to remain pain-free. She was given Tylenol with improvement in her fevers. I did perform a speculum exam which demonstrates clotting with tissue in the cervical canal. I do attempt to remove this the patient does have some pain. Bleeding is controlled at this time. I did call and speak with Neris Blevins who is the inbound sales advisor athletic monitor for the patient's NUTRITION SERVICES ASSISTANT office. I discussed the case with her. Informed her of the concern for incomplete versus of unknown location. Patient does want to follow-up in her clinic. I did give her a prescription for a beta hCG to be drawn in 2 days. Results will be sent to her NUTRITION SERVICES ASSISTANT office. She is instructed to take Motrin Tylenol for pain. She has uncontrolled fevers, worsening symptoms, worsening pain to return to the emergency department. Patient agreed to the treatment plan and was discharged home in stable condition - Lab Data Result diagrams: 02/18/22 17:37 02/18/22 17:37 Lab Results 02/18/22 02/18/22 02/18/22 Range/Units 17:37 17:37 17:37 WBC 11.6 H (3.8-10.6) k/uL RBC 4.25 (3.80-5.40) m/uL Hgb 12.4 (11.4-16.0) gm/dL Hct 38.1 (34.0-46.0) % MCV 89.6 (80.0-100.0) fL MCH 29.2 (25.0-35.0) pg MCHC 32.6 (31.0-37.0) g/dL RDW 12.7 (11.5-15.5) % Plt Count 150 (150-450) k/uL MPV 10.1 Neutrophils % 84 % Lymphocytes % 10 % Monocytes % 4 % Eosinophils % 1 % Basophils % 0 % Neutrophils # 9.8 H (1.3-7.7) k/uL Lymphocytes # 1.2 (1.0-4.8) k/uL Monocytes # 0.5 (0-1.0) k/uL Eosinophils # 0.1 (0-0.7) k/uL Basophils # 0.0 (0-0.2) k/uL PT 11.9 (9.0-12.0) sec INR 1.1 (<1.2) APTT 25.8 (22.0-30.0) sec Sodium 135 L (137-145) mmol/L Potassium 4.2 (3.5-5.1) mmol/L Chloride 104 (98-107) mmol/L Carbon Dioxide 23 (22-30) mmol/L Anion Gap 8 mmol/L BUN 6 L (7-17) mg/dL Creatinine 0.69 (0.52-1.04) mg/dL Est GFR (CKD-EPI)AfAm >90 (>60 ml/min/1.73 sqM) Est GFR (CKD-EPI)NonAf >90 (>60 ml/min/1.73 sqM) Glucose 89 (74-99) mg/dL Calcium 9.1 (8.4-10.2) mg/dL Total Bilirubin 0.6 (0.2-1.3) mg/dL AST 19 (14-36) U/L ALT 13 (4-34) U/L Alkaline Phosphatase 79 (38-126) U/L Total Protein 7.0 (6.3-8.2) g/dL Albumin 4.5 (3.5-5.0) g/dL HCG, Quant mIU/mL Urine Color Urine Appearance (Clear) Urine pH (5.0-8.0) Ur Specific [place] (1.001-1.035) Urine Protein (Negative) Urine Glucose (UA) (Negative) Urine Ketones (Negative) Urine Blood (Negative) Urine Nitrite (Negative) Urine Bilirubin (Negative) Urine Urobilinogen (<2.0) mg/dL Ur Leukocyte Esterase (Negative) Urine RBC (0-5) /hpf Urine WBC (0-5) /hpf Ur Squamous Epith Cells (0-4) /hpf Urine Bacteria (None) /hpf Coronavirus (PCR) (Not Detectd) Influenza Type A RNA (Not Detectd) Influenza Type B (PCR) (Not Detectd) Blood Type Blood Type Recheck Bld Type Recheck Status 02/18/22 02/18/22 02/18/22 Range/Units 17:37 17:37 19:41 WBC (3.8-10.6) k/uL RBC (3.80-5.40) m/uL Hgb (11.4-16.0) gm/dL Hct (34.0-46.0) % MCV (80.0-100.0) fL MCH (25.0-35.0) pg MCHC (31.0-37.0) g/dL RDW (11.5-15.5) % Plt Count (150-450) k/uL MPV Neutrophils % % Lymphocytes % % Monocytes % % Eosinophils % % Basophils % % Neutrophils # (1.3-7.7) k/uL Lymphocytes # (1.0-4.8) k/uL Monocytes # (0-1.0) k/uL Eosinophils # (0-0.7) k/uL Basophils # (0-0.2) k/uL PT (9.0-12.0) sec INR (<1.2) APTT (22.0-30.0) sec Sodium (137-145) mmol/L Potassium (3.5-5.1) mmol/L Chloride (98-107) mmol/L Carbon Dioxide (22-30) mmol/L Anion Gap mmol/L BUN (7-17) mg/dL Creatinine (0.52-1.04) mg/dL Est GFR (CKD-EPI)AfAm (>60 ml/min/1.73 sqM) Est GFR (CKD-EPI)NonAf (>60 ml/min/1.73 sqM) Glucose (74-99) mg/dL Calcium (8.4-10.2) mg/dL Total Bilirubin (0.2-1.3) mg/dL AST (14-36) U/L ALT (4-34) U/L Alkaline Phosphatase (38-126) U/L Total Protein (6.3-8.2) g/dL Albumin (3.5-5.0) g/dL HCG, Quant 69565.8 mIU/mL Urine Color Urine Appearance (Clear) Urine pH (5.0-8.0) Ur Specific [place] (1.001-1.035) Urine Protein (Negative) Urine Glucose (UA) (Negative) Urine Ketones (Negative) Urine Blood (Negative) Urine Nitrite (Negative) Urine Bilirubin (Negative) Urine Urobilinogen (<2.0) mg/dL Ur Leukocyte Esterase (Negative) Urine RBC (0-5) /hpf Urine WBC (0-5) /hpf Ur Squamous Epith Cells (0-4) /hpf Urine Bacteria (None) /hpf Coronavirus (PCR) (Not Detectd) Influenza Type A RNA Not Detected (Not Detectd) Influenza Type B (PCR) Not Detected (Not Detectd) Blood Type A Positive Blood Type Recheck A Pos Bld Type Recheck Status No 02/18/22 02/18/22 Range/Units 19:41 20:00 WBC (3.8-10.6) k/uL RBC (3.80-5.40) m/uL Hgb (11.4-16.0) gm/dL Hct (34.0-46.0) % MCV (80.0-100.0) fL MCH (25.0-35.0) pg MCHC (31.0-37.0) g/dL RDW (11.5-15.5) % Plt Count (150-450) k/uL MPV Neutrophils % % Lymphocytes % % Monocytes % % Eosinophils % % Basophils % % Neutrophils # (1.3-7.7) k/uL Lymphocytes # (1.0-4.8) k/uL Monocytes # (0-1.0) k/uL Eosinophils # (0-0.7) k/uL Basophils # (0-0.2) k/uL PT (9.0-12.0) sec INR (<1.2) APTT (22.0-30.0) sec Sodium (137-145) mmol/L Potassium (3.5-5.1) mmol/L Chloride (98-107) mmol/L Carbon Dioxide (22-30) mmol/L Anion Gap mmol/L BUN (7-17) mg/dL Creatinine (0.52-1.04) mg/dL Est GFR (CKD-EPI)AfAm (>60 ml/min/1.73 sqM) Est GFR (CKD-EPI)NonAf (>60 ml/min/1.73 sqM) Glucose (74-99) mg/dL Calcium (8.4-10.2) mg/dL Total Bilirubin (0.2-1.3) mg/dL AST (14-36) U/L ALT (4-34) U/L Alkaline Phosphatase (38-126) U/L Total Protein (6.3-8.2) g/dL Albumin (3.5-5.0) g/dL HCG, Quant mIU/mL Urine Color Red Urine Appearance Cloudy H (Clear) Urine pH 5.5 (5.0-8.0) Ur Specific [place] 1.023 (1.001-1.035) Urine Protein 2+ H (Negative) Urine Glucose (UA) Negative (Negative) Urine Ketones 2+ H (Negative) Urine Blood Large H (Negative) Urine Nitrite Negative (Negative) Urine Bilirubin Negative (Negative) Urine Urobilinogen 2.0 (<2.0) mg/dL Ur Leukocyte Esterase Moderate H (Negative) Urine RBC >182 H (0-5) /hpf Urine WBC 19 H (0-5) /hpf Ur Squamous Epith Cells 9 H (0-4) /hpf Urine Bacteria Occasional H (None) /hpf Coronavirus (PCR) Not Detected (Not Detectd) Influenza Type A RNA (Not Detectd) Influenza Type B (PCR) (Not Detectd) Blood Type Blood Type Recheck Bld Type Recheck Status Disposition Clinical Impression: Fever, UTI (urinary tract infection), Incomplete miscarriage, , location unknown Disposition: HOME SELF-CARE Condition: Serious Instructions (If sedation given, give patient instructions): Threatened Miscarriage (ED), Urinary Tract Infection in Women (ED) Additional Instructions: Please follow-up with your NUTRITION SERVICES ASSISTANT - call tomorrow for an appointment. I would like you to return in 2 days to the outpatient lab at the hospital to have your labs drawn and these results will be sent to your NUTRITION SERVICES ASSISTANT office. If your hormone is falling, it must return to 0. You will have some bleeding and clotting. If your bleeding becomes heavy or you begin having intense pain, please return to the emergency department Prescriptions: Cephalexin [Keflex] 500 mg PO BID 1 Days #14 cap Is patient prescribed a controlled substance at d/c from ED?: No Referrals: Jordan Wasserman MD [Primary Care Provider] - 1-2 days Time of Disposition: 21:18
== END 2022-02-18 21:31 | disposition home or self-care (01) ==
LOC: EC 15:44
DX: O03.4 Incomplete spontaneous abortion without complication (principal); O23.41 Unspecified infection of urinary tract in pregnancy, first trimester; N39.0 Urinary tract infection, site not specified; Z67.10 Type A blood, Rh positive; Z20.822 Contact with and (suspected) exposure to COVID-19; Z3A.08 8 weeks gestation of pregnancy
CPT/HCPCS: 36415; 86900; 86901; 80053; 85025; 85610; 85730; 81001; 84702; 87086; 87502; 87635; 76801; 99284; 96374; 96361; J0696

== ENCOUNTER → 2022-02-20 | Outpatient (CLI) | payer OTHER | END | disposition home or self-care (01) | LOC: LABWHC1 14:37 | PROVIDERS: ATTEND Emergency Medicine | DX: O20.0 Threatened abortion (principal); Z3A.00 Weeks of gestation of pregnancy not specified | CPT/HCPCS: 36415; 84702 ==

== ENCOUNTER → 2022-02-27 | Outpatient (CLI) | payer OTHER | END | disposition home or self-care (01) | LOC: LABWHC1 10:24 | PROVIDERS: ATTEND Obstetrics & Gynecology | DX: O03.9 Complete or unspecified spontaneous abortion without complication (principal); Z3A.00 Weeks of gestation of pregnancy not specified | CPT/HCPCS: 36415; 84702 ==

== ENCOUNTER 2024-11-02 00:42 | Observation (INO) | payer OTHER ==
--- NOTE | 2024-11-02 02:07 | ED ---
General Adult HPI - General Chief complaint: Abdominal Pain Stated complaint: Abdominal Pain Time Seen by Provider: 11/02/24 01:05 Source: patient Mode of arrival: ambulatory Limitations: no limitations - History of Present Illness Initial comments: Patient is a 39-year-old female past medical history of WPW, prior appendectomy presenting today for abdominal pain. States started about 4 hours prior to arrival. Is sharp spasming and cramping in nature. Located predominantly in the lower abdomen and left upper quadrant. Endorses 1 loose stool that was nonbloody, nonmelanotic here in the ER. Prior abdominal surgeries include prior appendectomy and C-sections. She denies any chest pain, states it feels like it is hard to take a deep breath in due to abdominal pain. No nausea no vomiting. No fevers no chills. Denies dysuria or hematuria. Denies abnormal vaginal discharge or vaginal bleeding. Had her IUD removed 2 weeks ago however has 1 male partner that has had a prior vasectomy. - Related Data Home Medications Medication Instructions Recorded Confirmed Pantoprazole Sodium [Protonix] 40 mg PO HS 11/02/24 11/02/24 Venlafaxine HCl [Effexor XR] 75 mg PO HS 11/02/24 11/02/24 Allergies Allergy/AdvReac Type Severity Reaction Status Date / Time Penicillins Allergy Rash/Hives Verified 11/02/24 07:34 Review of Systems ROS Statement: Those systems with pertinent positive or pertinent negative responses have been documented in the HPI. ROS Other: All systems not noted in ROS Statement are negative. Past Medical History Past Medical History: Pneumonia Additional Past Medical History / Comment(s): Fortune Parkinsons White, Cardiac Ablation , anx/depression, pne age 14 History of Any Multi-Drug Resistant Organisms: None Reported Past Surgical History: Appendectomy, Cardiac Ablation Additional Past Surgical History / Comment(s): Patient has had a cone biopsy the cervix and she is also had a cardiac ablation. Past Anesthesia/Blood Transfusion Reactions: Postoperative Nausea & Vomiting (PONV) Past Psychological History: Anxiety, Depression Smoking Status: Current every day smoker Past Alcohol Use History: Occasional Past Drug Use History: None Reported - Past Family History Father Family Medical History: Hyperlipidemia Mother Family Medical History: Thyroid Disorder Additional Family Medical History / Comment(s): Hypothryoid ,bipolar,hiatal hernia, obesity had gastric sleeve sx General Exam - General Exam Comments Initial Comments: PE: CONSTITUTIONAL: [Well-appearing though tearful, uncomfortable appearing] SKIN: [warm, dry, no jaundice, hives or petechiae] EYES:[ pupils are equally round, extraocular movements intact without nystagmus, clear conjunctiva, non-icteric sclera] HENT: [normocephalic, atraumatic, moist mucus membranes, oropharynx clear without exudates] NECK: , [Full range of motion, normal appearance] PULMONARY: [clear to auscultation without wheezes, rhonchi, or rales, normal excursion, no accessory muscle use and no stridor] CARDIOVASCULAR:[ regular rate, rhythm, normal S1 and S2. No appreciated murmurs, rubs or gallops. Strong radial pulses with intact distal perfusion. No lower extremity edema] GASTROINTESTINAL: [soft, active bowel sounds throughout, tenderness ovation of the left upper quadrant,, non-distended, no palpable masses, no reboun; guarding with patient of the left upper quadrant, no CVA tenderness no hepatosplenomegaly] GENITOURINARY: MUSCULOSKELETAL: [Extremities have no gross deformity, no edema, redness, or swelling. No calf swelling ] NEUROLOGIC: [_a/o x 3, GCS 15, normal mentation and speech. Moves all extremities x 4 without motor or sensory deficit] PSYCHIATRIC:[ _normal mood and affect, thought process is clear and linear] Limitations: no limitations Course Vital Signs 11/02/24 11/02/24 11/02/24 00:56 07:35 11:03 Temperature 97.9 F Pulse Rate 110 H 80 77 Respiratory 20 18 16 Rate Blood Pressure 130/80 115/80 112/74 O2 Sat by Pulse 99 98 97 Oximetry 11/02/24 11/02/24 11/02/24 12:32 14:03 17:22 Temperature 98.7 F Pulse Rate 87 95 72 Respiratory 18 18 18 Rate Blood Pressure 117/75 108/71 O2 Sat by Pulse 98 94 L 100 Oximetry Medical Decision Making - Medical Decision Making Was pt. sent in by a medical professional or institution (, PA, INFORMATION SPECIALIST, urgent care, hospital, or detention...) When possible be specific @ -No Did you speak to anyone other than the patient for history (EMS, parent, family, police, friend...)? What history was obtained from this source @ -No Did you review nursing and triage notes (agree or disagree)? Why? @ -I reviewed nursing and triage notes patient here for abdominal pain, started about 3 hours ago, drinks 6 pack a day and uses liquor Were old charts reviewed (outside hosp., previous admission, EMS record, old EKG, old radiological studies, urgent care reports/EKG's, detention records)? Report findings @ -Medical records reviewed Differential Diagnosis (chest pain, altered mental status, abdominal pain women, abdominal pain men, vaginal bleeding, weakness, fever, dyspnea, syncope, headache, dizziness, GI bleed, back pain, seizure, CVA, palpatations, mental health, musculoskeletal)? @Differential Abdominal Pain Women: Appendicitis, Cholecystitis, diverticulosis, ischemic bowel, pancreatitis, hepatitis, UTI, gastroenteritis, AAA, incarcerated hernia, bowel obstruction, constipation, inflammatory bowel, hepatitis, peptic ulcer disease, splenic infarction, perforated viscus, ovarian torsion, PID, kidney stone, ectopic this is not meant to be an all-inclusive list EKG interpreted by me (3pts min.). @ -As above X-rays interpreted by me (1pt min.). @ -None done CT interpreted by me (1pt min.). @I personally reviewed CT scan, appears to show some bowel wall thickening along the distal sigmoid colon, without evidence of obstruction or perforation, radiologist read to significant for proctocolitis, I agree with radiologist interpretation U/S interpreted by me (1pt. min.). @ -None done What testing was considered but not performed or refused? (CT, X-rays, U/S, labs)? Why? @Ultrasound of the pelvis was considered however given nature of pain, abdominal exam and associated GI complaints, started with CT scan which found findings consistent with patient's complaint What meds were considered but not given or refused? Why? @Antibiotics were considered however patient is afebrile, and case was further discussed with admitting physician, we decided to forgo antibiotics at this time Did you discuss the management of the patient with other professionals (professionals i.e. , PA, INFORMATION SPECIALIST, lab, RT, psych nurse, social service worker, third steel pourer, teacher, conservation officer, clinical case manager)? Give summary @ -No Was smoking cessation discussed for >3mins.? @ -No Was critical care preformed (if so, how long)? @ -No Were there social determinants of health that impacted care today? How? (Homelessness, low income, unemployed, alcoholism, drug addiction, transportation, low edu. Level, literacy, decrease access to med. care, long-term, rehab)? @ -No Was there de-escalation of care discussed even if they declined (Discuss DNR or withdrawal of care, Hospice)? @ -No What co-morbidities impacted this encounter? (DM, HTN, Smoking, COPD, CAD, Cancer, CVA, ARF, Chemo, Hep., AIDS, mental health diagnosis, sleep apnea, morbid obesity)? @ -None Was patient admitted / discharged? Hospital course, mention meds given and route, prescriptions, significant lab abnormalities, going to OR and other pertinent info. @Admission- this is a 39-year-old female presenting today for 4 hours of left upper quadrant and lower abdominal pain spasming and sharp in nature. Patient mildly tachycardic on arrival, afebrile. On my assessment patient is uncom fortable appearing though nontoxic. Exam significant for left upper quadrant and suprapubic tenderness palpation pain worse in the left upper quadrant. Abdomen is soft and nondistended without palpable masses. Discussed with patient plan for CT abdomen pelvis, labs, IV fluids and pain control. She is agreeable plan of care. On reassessment patient continue to endorse pain, additional pain control ordered. Labs are significant for: No leukocytosis, mild lactic acidosis with white blood cell count 2.1, slight elevation in liver enzymes AST/ALT 53/38 and serum alcohol 273, I suspect lactic acidosis is secondary to alcohol intoxication. CT significant for diffuse annular thickening of the colon and rectum favored to relate to proctocolitis with submucosal fat deposition implies an element of chronicity, no other acute findings also noted a hemorrhagic right ovarian cyst measuring 1.2 cm in maximum diameter though patient had no right lower quadrant tenderness to palpation, suspect hemorrhagic cyst is incidental finding . On reassessment updated patient to findings, she remains rather painful. She will be admitted for pain control. Case discussed with Dr. Anthony, kindly accepts patient for admission. Undiagnosed new problem with uncertain prognosis? @ -No Drug Therapy requiring intensive monitoring for toxicity (Heparin, Nitro, Insulin, Cardizem)? @ -No Were any procedures done? @ -No Diagnosis/symptom? Proctocolitis Acute, or Chronic, or Acute on Chronic? acute Uncomplicated (without systemic symptoms) or Complicated (systemic symptoms)? complicated Side effects of treatment? @ -No Exacerbation, Progression, or Severe Exacerbation? @ -No Poses a threat to life or bodily function? How? (Chest pain, [place], [place], pneumonia, PE, COPD, DKA, ARF, appy, cholecystitis, CVA, Diverticulitis, Homicidal, Suicidal, threat to staff... and all critical care pts) @ -No - Lab Data Result diagrams: 11/02/24 02:02 11/02/24 02:02 Lab Results 11/02/24 11/02/24 11/02/24 Range/Units 01:30 02:02 02:02 WBC 7.5 (3.8-10.6) k/uL RBC 4.55 (3.80-5.40) m/uL Hgb 14.1 (11.4-16.0) gm/dL Hct 42.6 (34.0-46.0) % MCV 93.7 (80.0-100.0) fL MCH 31.0 (25.0-35.0) pg MCHC 33.1 (31.0-37.0) g/dL RDW 12.4 (11.5-15.5) % Plt Count 201 (150-450) k/uL MPV 8.4 Neutrophils % 56 % Lymphocytes % 37 % Monocytes % 4 % Eosinophils % 1 % Basophils % 1 % Neutrophils # 4.2 (1.3-7.7) k/uL Lymphocytes # 2.8 (1.0-4.8) k/uL Monocytes # 0.3 (0-1.0) k/uL Eosinophils # 0.1 (0-0.7) k/uL Basophils # 0.1 (0-0.2) k/uL PT 10.8 (10.0-12.5) sec INR 1.0 (<1.2) APTT 27.2 (22.0-30.0) sec Sodium (137-145) mmol/L Potassium (3.5-5.1) mmol/L Chloride (98-107) mmol/L Carbon Dioxide (22-30) mmol/L Anion Gap mmol/L BUN (7-17) mg/dL Creatinine (0.52-1.04) mg/dL Est GFR (CKD-EPI)AfAm (>60 ml/min/1.73 sqM) Est GFR (CKD-EPI)NonAf (>60 ml/min/1.73 sqM) Glucose (74-99) mg/dL Lactic Ac Sepsis Rflx Plasma Lactic Acid Chente (0.7-2.0) mmol/L Calcium (8.4-10.2) mg/dL Total Bilirubin (0.2-1.3) mg/dL AST (14-36) U/L ALT (4-34) U/L Alkaline Phosphatase (38-126) U/L Total Protein (6.3-8.2) g/dL Albumin (3.5-5.0) g/dL Amylase (30-110) U/L Lipase (23-300) U/L HCG, Quant mIU/mL Urine Color Urine Appearance (Clear) Urine pH (5.0-8.0) Ur Specific [place] (1.001-1.035) Urine Protein (Negative) Urine Glucose (UA) (Negative) Urine Ketones (Negative) Urine Blood (Negative) Urine Nitrite (Negative) Urine Bilirubin (Negative) Urine Urobilinogen (<2.0) mg/dL Ur Leukocyte Esterase (Negative) Serum Alcohol mg/dL Blood Type A Positive Blood Type Recheck A Pos Bld Type Recheck Status No Antibody Screen NEGATIVE Spec Expiration Date 11/05/2024 - 230111/02/24 11/02/24 11/02/24 Range/Units 02:02 02:02 02:02 WBC (3.8-10.6) k/uL RBC (3.80-5.40) m/uL Hgb (11.4-16.0) gm/dL Hct (34.0-46.0) % MCV (80.0-100.0) fL MCH (25.0-35.0) pg MCHC (31.0-37.0) g/dL RDW (11.5-15.5) % Plt Count (150-450) k/uL MPV Neutrophils % % Lymphocytes % % Monocytes % % Eosinophils % % Basophils % % Neutrophils # (1.3-7.7) k/uL Lymphocytes # (1.0-4.8) k/uL Monocytes # (0-1.0) k/uL Eosinophils # (0-0.7) k/uL Basophils # (0-0.2) k/uL PT (10.0-12.5) sec INR (<1.2) APTT (22.0-30.0) sec Sodium 141 (137-145) mmol/L Potassium 4.1 (3.5-5.1) mmol/L Chloride 104 (98-107) mmol/L Carbon Dioxide 22 (22-30) mmol/L Anion Gap 15 mmol/L BUN 5 L (7-17) mg/dL Creatinine 0.66 (0.52-1.04) mg/dL Est GFR (CKD-EPI)AfAm >90 (>60 ml/min/1.73 sqM) Est GFR (CKD-EPI)NonAf >90 (>60 ml/min/1.73 sqM) Glucose 86 (74-99) mg/dL Lactic Ac Sepsis Rflx Plasma Lactic Acid Chente 2.1 H* (0.7-2.0) mmol/L Calcium 9.9 (8.4-10.2) mg/dL Total Bilirubin 0.5 (0.2-1.3) mg/dL AST 53 H (14-36) U/L ALT 38 H (4-34) U/L Alkaline Phosphatase 92 (38-126) U/L Total Protein 7.9 (6.3-8.2) g/dL Albumin 5.0 (3.5-5.0) g/dL Amylase 49 (30-110) U/L Lipase 129 (23-300) U/L HCG, Quant <2.4 mIU/mL Urine Color Colorless Urine Appearance Clear (Clear) Urine pH 7.0 (5.0-8.0) Ur Specific [place] 1.003 (1.001-1.035) Urine Protein Negative (Negative) Urine Glucose (UA) Negative (Negative) Urine Ketones Negative (Negative) Urine Blood Negative (Negative) Urine Nitrite Negative (Negative) Urine Bilirubin Negative (Negative) Urine Urobilinogen <2.0 (<2.0) mg/dL Ur Leukocyte Esterase Negative (Negative) Serum Alcohol 273 H* mg/dL Blood Type Blood Type Recheck Bld Type Recheck Status Antibody Screen Spec Expiration Date 11/02/24 11/02/24 Range/Units 02:37 06:29 WBC (3.8-10.6) k/uL RBC (3.80-5.40) m/uL Hgb (11.4-16.0) gm/dL Hct (34.0-46.0) % MCV (80.0-100.0) fL MCH (25.0-35.0) pg MCHC (31.0-37.0) g/dL RDW (11.5-15.5) % Plt Count (150-450) k/uL MPV Neutrophils % % Lymphocytes % % Monocytes % % Eosinophils % % Basophils % % Neutrophils # (1.3-7.7) k/uL Lymphocytes # (1.0-4.8) k/uL Monocytes # (0-1.0) k/uL Eosinophils # (0-0.7) k/uL Basophils # (0-0.2) k/uL PT (10.0-12.5) sec INR (<1.2) APTT (22.0-30.0) sec Sodium (137-145) mmol/L Potassium (3.5-5.1) mmol/L Chloride (98-107) mmol/L Carbon Dioxide (22-30) mmol/L Anion Gap mmol/L BUN (7-17) mg/dL Creatinine (0.52-1.04) mg/dL Est GFR (CKD-EPI)AfAm (>60 ml/min/1.73 sqM) Est GFR (CKD-EPI)NonAf (>60 ml/min/1.73 sqM) Glucose (74-99) mg/dL Lactic Ac Sepsis Rflx Y Plasma Lactic Acid Chente 1.3 (0.7-2.0) mmol/L Calcium (8.4-10.2) mg/dL Total Bilirubin (0.2-1.3) mg/dL AST (14-36) U/L ALT (4-34) U/L Alkaline Phosphatase (38-126) U/L Total Protein (6.3-8.2) g/dL Albumin (3.5-5.0) g/dL Amylase (30-110) U/L Lipase (23-300) U/L HCG, Quant mIU/mL Urine Color Urine Appearance (Clear) Urine pH (5.0-8.0) Ur Specific [place] (1.001-1.035) Urine Protein (Negative) Urine Glucose (UA) (Negative) Urine Ketones (Negative) Urine Blood (Negative) Urine Nitrite (Negative) Urine Bilirubin (Negative) Urine Urobilinogen (<2.0) mg/dL Ur Leukocyte Esterase (Negative) Serum Alcohol mg/dL Blood Type Blood Type Recheck Bld Type Recheck Status Antibody Screen Spec Expiration Date Disposition Clinical Impression: Proctocolitis Disposition: ADMITTED IP TO THIS HOSP Condition: Good
[2024-11-02] MEDS: KETOROLAC 15 MG/ML 1 ML VIAL IVP STA (02:09)
[2024-11-02] MEDS: ONDANSETRON 4 MG/2 ML VIAL IVP STA ×3 (02:11→07:42)
[2024-11-02] MEDS: MORPHINE SULFATE 4 MG/ML SYRINGE IVP STA ×3 (02:12→07:45)
[2024-11-02] MEDS: LACTATED RINGERS 1,000 ML IV ONE (02:15)
[2024-11-02 02:27] LABS: Basophils # (A) 0.1 k/uL (0-0.2); Basophils % (A) 1 %; Eosinophils # (A) 0.1 k/uL (0-0.7); Eosinophils % (A) 1 %; HCT 42.6 % (34.0-46.0); HGB 14.1 gm/dL (11.4-16.0); Lymphocytes # (A) 2.8 k/uL (1.0-4.8); Lymphocytes % (A) 37 %; MCHC 33.1 g/dL (31.0-37.0); MCV 93.7 fL (80.0-100.0); Mean Platelet Volume 8.4; Monocytes # (A) 0.3 k/uL (0-1.0); Monocytes % (A) 4 %; Neutrophils # (A) 4.2 k/uL (1.3-7.7); Neutrophils % (A) 56 %; Platelet Count 201 k/uL (150-450); RBC 4.55 m/uL (3.80-5.40); RDW 12.4 % (11.5-15.5); WBC 7.5 k/uL (3.8-10.6)
[2024-11-02 02:29] LABS: ALT 38 U/L (4-34); AST 53 U/L (14-36); African American GFR (CKD) >90 (>60 ml/min/1.73 sqM); Alkaline Phosphatase 92 U/L (38-126); Amylase 49 U/L (30-110); Anion Gap 15 mmol/L; Blood Urea Nitrogen 5 mg/dL (7-17); Calcium 9.9 mg/dL (8.4-10.2); Carbon Dioxide 22 mmol/L (22-30); Chloride 104 mmol/L (98-107); Glucose 86 mg/dL (74-99); Lipase 129 U/L (23-300); Non-African American GFR(CKD) >90 (>60 ml/min/1.73 sqM); Potassium 4.1 mmol/L (3.5-5.1); Sodium 141 mmol/L (137-145); Total Bilirubin 0.5 mg/dL (0.2-1.3); Total Protein 7.9 g/dL (6.3-8.2)
[2024-11-02 02:31] LABS: Alcohol 273 mg/dL
[2024-11-02 02:38] LABS: Appearance,Urine Clear (Clear); Bilirubin,Urine Negative (Negative); Blood,Urine Negative (Negative); Color,Urine Colorless; Glucose,Urine (UA) Negative (Negative); Ketones,Urine Negative (Negative); Leukocyte Esterase,Urine Negative (Negative); Nitrite,Urine Negative (Negative); Protein,Urine Negative (Negative); Specific Gravity,Urine 1.003 (1.001-1.035); Urobilinogen,Urine <2.0 mg/dL (<2.0)
[2024-11-02 02:40] LABS: Partial Thromboplastin Time 27.2 sec (22.0-30.0); Prothrombin Time 10.8 sec (10.0-12.5)
[2024-11-02 02:44] LABS: HCG,Quantitative Serum <2.4 mIU/mL
--- NOTE | 2024-11-02 05:44 | CT ---
EXAM: CT Abdomen and Pelvis With Intravenous Contrast CLINICAL HISTORY: ITS.REASON CT Reason: spasming low ab pain, LUQ pain TECHNIQUE: Axial computed tomography images of the abdomen and pelvis with intravenous contrast. CTDI is 20.5 mGy and DLP is 984 mGy-cm. This CT exam was performed using one or more of the following dose reduction techniques: automated exposure control, adjustment of the mA and/or kV according to patient size, and/or use of iterative reconstruction technique. COMPARISON: No relevant prior studies available. FINDINGS: Lung bases: Unremarkable. No mass. No consolidation. ABDOMEN: Liver: Unremarkable. No mass. Gallbladder and bile ducts: Unremarkable. No calcified stones. No ductal dilation. Pancreas: Unremarkable. No mass. No ductal dilation. Spleen: Unremarkable. No splenomegaly. Adrenals: Unremarkable. No mass. Kidneys and ureters: Unremarkable. No solid mass. No hydronephrosis. Stomach and bowel: Diffuse annular thickening of the colon and rectum which is favored to relate to proctocolitis. Submucosal fat deposition implies an element of chronicity. Enlarged body habitus, amongst other etiologies, or possible. No evidence of bowel obstruction. PELVIS: Appendix: Appendectomy changes. Bladder: Unremarkable. No mass. Reproductive: Simple right ovarian cyst or follicle measuring 2.1 cm in maximum diameter. No follow-up is necessary. Hemorrhagic right ovarian cyst measuring 1.2 cm in maximum diameter. No follow-up is necessary. ABDOMEN and PELVIS: Intraperitoneal space: Unremarkable. No free air. No significant fluid collection. Bones/joints: Degenerative changes in the spine. No acute fracture. No dislocation. Soft tissues: Umbilical hernia containing fat. Gynecomastia. Vasculature: Unremarkable. No abdominal aortic aneurysm. Lymph nodes: Unremarkable. No enlarged lymph nodes. IMPRESSION: 1. Diffuse annular thickening of the colon and rectum which is favored to relate to proctocolitis. Submucosal fat deposition implies an element of chronicity. Enlarged body habitus, amongst other etiologies, or possible. 2. No evidence of bowel obstruction. 3. No other acute findings. 4. Incidental findings as described.
[2024-11-02] MEDS ORDERED: NALOXONE 0.4 MG/ML 1 ML VIAL IV PRN (07:52)
[2024-11-02] MEDS ORDERED: KETOROLAC 15 MG/ML 1 ML VIAL IVP PRN (07:52)
[2024-11-02] MEDS ORDERED: ALPRAZolam 0.25 MG TAB PO PRN (07:52)
[2024-11-02] MEDS ORDERED: ACETAMINOPHEN TAB 325 MG TAB PO PRN (07:52)
[2024-11-02] MEDS ORDERED: LORazepam 1 MG TAB PO PRN ×3 (07:53)
[2024-11-02] MEDS ORDERED: LORazepam 0.5 MG TAB PO PRN (07:53)
[2024-11-02] MEDS ORDERED: LORazepam 2 MG/ML INJ IV PRN (07:53)
[2024-11-02] MEDS: ENOXAPARIN 40 MG/0.4 ML SYRINGE SQ SCH (10:58)
[2024-11-02] MEDS: SODIUM CHLORIDE 0.9% 1,000 ML IV SCH (10:58)
[2024-11-02] MEDS: FOLIC ACID 1 MG TAB PO SCH (10:58)
[2024-11-02] MEDS: MULTIVITAMINS, THERA 1 EACH TAB PO SCH (10:58)
[2024-11-02] MEDS: FAMOTIDINE 20 MG TAB PO SCH (11:07)
[2024-11-02] MEDS: ONDANSETRON 4 MG/2 ML VIAL IVP PRN (12:35)
[2024-11-02] MEDS: MORPHINE SULFATE 4 MG/ML SYRINGE IV PRN (12:37)
[2024-11-02] MEDS: LORazepam 1 MG TAB PO PRN (14:09)
--- NOTE | 2024-11-02 15:54 | P.HPIM ---
History of Present Illness H&P Date: 11/02/24 History of present illness; 39-year-old female with PMH of Amjpe-Clcwksbnu-Rlxfj syndrome s/p ablation with Dr. Cummings, prior appendectomy who presents to the emergency department with worsening abdominal pain. She states that the pain began late last night and describes it as sharp and spasming in nature. With some associated crampiness. She states when the pain began yesterday was like a "tearing" sensation across her upper abdomen, with some associated pain in the left lower quadrant and t hrough her vaginal and rectal area. She describes it that it felt as though she was giving . However she feels as though at this time the pain is more diffuse across the lower abdomen with more of what she describes as a "cramping"sensation. She endorses having drank a sixpack of beer last night however had no associated nausea, vomiting or diarrhea prior to arrival to hospital. Upon arriving at the hospital she did have 1 episode of diarrhea. She states that when the pain began she rated at approximately an 89/10, however now without the aid of pain medications she would rate the pain as a 56/10. Labratory review: -WBCs 7.5, hemoglobin 14.1, adequate 42.6, platelet 201; sodium 141, potassium 4.1, BUN 5, creatinine 0.66, total bilirubin 0.5, AST 53, ALT 38, alkaline phosphatase 92, calcium 9.9, amylase 49, lipase 129 -Initial lactic acid 2.1, repeat 1.3 -Beta-hCG <2.4 -UA unremarkable -Serum alcohol level 273 Imaging: -CT abdomen/pelvis showed diffuse annular thickening of the colon and rectum which is favored to relate to proctocolitis, with submucosal fat deposition complain be element of chronicity; without evidence of bowel obstruction and no other acute findings Vitals: -On arrival: Blood pressure 130/80, heart rate 110, respiratory rate 20, SpO2 99% on room air -Most recently: Blood pressure 115/80, heart rate 80, respiratory rate 18, SpO2 98% on room air Patient admitted to internal medicine service REVIEW OF SYSTEMS: Pertinent positives and negatives noted in HPI. The rest of the 14-point review of systems is negative. Physical Exam: General: nontoxic, no distress, appears at stated age Derm: warm, dry, intact Head: atraumatic, normocephalic, symmetric Eyes: EOMI, anicteric sclera Mouth: no lip lesion, mucus membranes moist Cardiovascular: S1 S2 reg, no murmur, rubs, or gallops Lungs: CTA bilateral, no rales, no accessory muscle use Abdominal: Diffusely tender to palpation. Increased tenderness to all patient in the mid epigastric area, the left upper quadrant, and the left lower quadrant of the abdomen Extremities: no gross muscle atrophy, no edema, no contractures Neuro: Alert, Oriented, CNII-XII grossly intact, gait normal Psych: well appearing, appropriate affect Assessment and plan 39-year-old female with PMH of Ulsun-Slvkosmyv-Dzlxk syndrome, prior appendectomy who presents to the emergency department with worsening abdominal pain. #Proctocolitis -Continue with pain control with Toradol 15 mg IV every 6 hours as needed -Continue with nausea control Zofran 4 mg every 8 hours -Continue with Protonix 40 mg nightly -Advance diet to regular, sessile diet as tolerated #Possible history of alcohol abuse -Ativan PO per CIWA protocol -Give daily thiamine and folic acid and multivitamin -Monitor daily electrolytes -Seizure precaution GI prophylaxis: Protonix 40 mg daily DVT prophylaxis: Ambulatory The patient is admitted with an anticipated more than than 2 midnight stay for evaluation of Proctocolitis CODE STATUS: Full code Discussed with: Patient Anticipated discharge place: Home Dictation was produced using [employer] dictation software. please excuse any grammatical, word or spelling errors. Panchito Pinon MD PGY-1 IM I have seen and evaluated the patient today. Discussed with the resident and agree with the residents finding and plan as documented in the resident's note. Changes highlighted in blue font. Past Medical History Past Medical History: Pneumonia Additional Past Medical History / Comment(s): Fortune Parkinsons White, Cardiac Ablation , anx/depression, pne age 14 History of Any Multi-Drug Resistant Organisms: None Reported Past Surgical History: Appendectomy, Cardiac Ablation Additional Past Surgical History / Comment(s): Patient has had a cone biopsy the cervix and she is also had a cardiac ablation. Past Anesthesia/Blood Transfusion Reactions: Postoperative Nausea & Vomiting (PONV) Past Psychological History: Anxiety, Depression Smoking Status: Current every day smoker Past Alcohol Use History: Occasional Past Drug Use History: None Reported - Past Family History Father Family Medical History: Hyperlipidemia Mother Family Medical History: Thyroid Disorder Additional Family Medical History / Comment(s): Hypothryoid ,bipolar,hiatal hernia, obesity had gastric sleeve sx Medications and Allergies Home Medications Medication Instructions Recorded Confirmed Type Pantoprazole Sodium [Protonix] 40 mg PO HS 11/02/24 11/02/24 History Venlafaxine HCl [Effexor XR] 75 mg PO HS 11/02/24 11/02/24 History Allergies Allergy/AdvReac Type Severity Reaction Status Date / Time Penicillins Allergy Rash/Hives Verified 11/02/24 07:34 Physical Exam Vitals: Vital Signs Temp Pulse Resp BP Pulse Ox 11/02/24 07:35 80 18 115/80 98 11/02/24 00:56 97.9 F 110 H 20 130/80 99 Intake and Output 11/01/24 11/02/24 11/02/24 22:59 06:59 14:59 Other: Weight 79.379 kg Results CBC & Chem 7: 11/02/24 02:02 11/02/24 02:02 Labs: Abnormal Lab Results - Last 24 Hours (Table) 11/02/24 11/02/24 Range/Units 02:02 02:02 BUN 5 L (7-17) mg/dL Plasma Lactic Acid Chente 2.1 H* (0.7-2.0) mmol/L AST 53 H (14-36) U/L ALT 38 H (4-34) U/L Serum Alcohol 273 H* mg/dL
[2024-11-02] MEDS ORDERED: LORazepam 1 MG/0.5 ML VIAL IV PRN (18:37)
[2024-11-02] MEDS: VENLAFAXINE HCL ER 75 MG CAP PO SCH (20:48)
[2024-11-02] MEDS: PANTOPRAZOLE 40 MG TABLET PO SCH (20:49)
[2024-11-03 08:52] VITALS: BP 117/78; RESP 16; TEMP 97.9
[2024-11-03] MEDS: THIAMINE 100 MG TAB PO SCH (09:41)
[2024-11-03] MEDS: FOLIC ACID 1 MG TAB PO SCH (10:50)
--- NOTE | 2024-11-03 11:20 | P.DS ---
Providers Date of admission: 11/02/24 07:53 Expected date of discharge: 11/03/24 Attending physician: Suresh Anthony Primary care physician: Jordan Wasserman Hospital Course: Discharge Diagnosis: Proctocolitis Alcohol intoxication upon arrival Right ovarian cyst and hemorrhagic cyst Slightly elevated liver enzymes, likely secondary to alcohol intoxication. History of Xroaz-Xrsamaugd-Hqanj syndrome Nicotine dependence Anxiety and depression Hospital Course: Patient is a pleasant 39-year-old female with past medical history of Wnhlz-Sctdgxpjc-Rwyft syndrome status post ablation follows with Dr. Cummings, anxiety with depression, alcohol use/abuse, and prior appendectomy. She presented to the emergency department on 11/02/2024 with a chief complaint of abdominal pain. Upon arrival to our facility, patient underwent evaluation in the emergency department. Vital signs upon arrival show blood pressure 130/80, heart rate 110, respiratory rate 20, temp 97.9 F, and SpO2 of 99% on room air. Completed and reviewed. CBC was unremarkable. Coagulation profile normal findings. BMP normal findings. Blood glucose 86. Initial lactic acid was elevated at 2.1. Liver profile showing elevated AST of 53 and ALT of 38 otherwise normal findings. Amylase and lipase normal findings. Serum hCG was negative for . Urinalysis negative for blood or infection. Serum alcohol level was elevated at 273. CT scan completed showing diffuse annular thickening of the colon and rectum concerning for proctocolitis with submucosal fat deposition implying chronicity and no evidence of small bowel obstruction or ileus also reporting a simple right ovarian cyst measuring 2.1 cm and a hemorrhagic right ovarian cyst measuring 1.2 cm stating no follow-up necessary. Patient was admitted under our services for alcohol intoxication and pain control for proctocolitis. Patient received IV fluid hydration. Lactic acidosis resolved. Patient clinically sober reports improvement of abdominal pain and reports having normal bowel function with the exception of a couple of loose stools. Patient denied a history of ulcerative colitis or previous i nflammatory bowel disorders. Patient is medically optimized at this time, recommended cessation of any and all alcohol use. Patient instructed Tylenol and/or Motrin as needed per directions for pain. Patient was sent with a small prescription of Bentyl per her request. Patient instructed she will need to follow-up outpatient with her PCP in 1 to 2 days and with director of donor relations in 2 weeks. Physical exam: Patient seen and examined at bedside. Vital signs reviewed and stable. General: Nontoxic, no distress and appears stated age. Derm: Skin warm and dry, normal coloration for ethnicity. Head: Atraumatic, normocephalic and symmetric. Eyes: EOM's intact, no lid lag, and anicteric sclera Mouth: no lip lesions, mucus membranes moist Cardiovascular: regular rate and rhythm with normal S1S2, no murmur, positive posterior tibial pulses bilaterally, and cap refill < 2 seconds. Lungs: Respirations even, regular, and unlabored on room air. Lungs CTA bilaterally, no rhonchi, no rales, no wheezing, and no accessory muscle usage. Abdominal: soft, nontender to palpation, no guarding, no appreciable organomegaly Ext: ROM intact. No gross muscle atrophy, no edema, no contractures Neuro: Speech clear, face symmetrical and CN II-XII grossly intact with no noted focal neuro deficits Psych: Alert and oriented to person, place, time, and situation. Appropriate and pleasant affect. A total of 33 minutes of time were spent preparing this complex discharge summary. Pt was discharged on at 11:19 AM. Patient was seen independently by Nurse Practitioner. This document was prepared using [employer] dictation software. Please allow for errors in director of first impressions while rare they do occur. Reji Vega NP rendered care for this patient independently, reviewed the findings and plan as documented in the note above. I did not physically speak with or examine the patient on this date. Patient Condition at Discharge: Stable Plan - Discharge Summary Discharge Rx Participant: No New Discharge Prescriptions: New Dicyclomine [Bentyl] 10 mg PO QID PRN #12 capsule PRN Reason: Pain Control Continue Venlafaxine HCl [Effexor XR] 75 mg PO HS Pantoprazole Sodium [Protonix] 40 mg PO HS Discharge Medication List Pantoprazole Sodium [Protonix] 40 mg PO HS 11/02/24 [History] Venlafaxine HCl [Effexor XR] 75 mg PO HS 11/02/24 [History] Dicyclomine [Bentyl] 10 mg PO QID PRN #12 capsule 11/03/24 [Rx] Follow up Appointment(s)/Referral(s): Jordan Wasserman MD [Primary Care Provider] - 1-2 days Sarah Hankins MD [STAFF PHYSICIAN] - 11/17/24 2:15 pm Patient Instructions/Handouts: Colitis (ED) Activity/Diet/Wound Care/Special Instructions: Activity: As tolerated. Diet: Low-fat diet avoid heavy/greasy and spicy foods. Special Instructions: Take all of your medications as directed and remember to keep all of your doctor's appointments and follow-up as needed. Recommend follow up with director of donor relations (Dr. Hankins) and if you develop any rectal bleeding or noted blood in your stool you will need to follow up with GI before the recommended 2 weeks and/or return to the hospital for evaluation as you would likely need to be started on mesalamine suppositories. At this time it is not recommended to start you on suppositories as you do not have a history of ulcerative colitis or underlying inflammatory bowel disease and are having normal to loose stools without difficulties and tolerating diet well. Therefore recommend continued conservative and supportive measures only. Thank you for allowing us to participate in your care, it was truly a pleasure having you for our patient!!! . Discharge/Stand Alone Forms: Work/School Release Discharge Disposition: HOME SELF-CARE
[2024-11-03 12:11] VITALS: PULSE 80
== END 2024-11-03 12:02 | disposition home or self-care (01) ==
LOC: EC 00:42 → 6NMEDSUR 07:53
PROVIDERS: ADMIT Student in an Organized Health Care Education/Training Program; ATTEND Student in an Organized Health Care Education/Training Program
DX: K52.9 Noninfective gastroenteritis and colitis, unspecified (principal); K62.89 Other specified diseases of anus and rectum; E87.20 Acidosis, unspecified; F10.129 Alcohol abuse with intoxication, unspecified; R74.8 Abnormal levels of other serum enzymes; F17.200 Nicotine dependence, unspecified, uncomplicated; F32.A Depression, unspecified; F41.9 Anxiety disorder, unspecified; N83.201 Unspecified ovarian cyst, right side; I45.6 Pre-excitation syndrome; Y90.8 Blood alcohol level of 240 mg/100 ml or more; Z79.899 Other long term (current) drug therapy; Z90.49 Acquired absence of other specified parts of digestive tract
CPT/HCPCS: 96376 ×3; 96372 ×2; 96374; 96375; 99285; 36415; 86900; 86901; 80053; 82150; 83605; 83690; 85025; 85610; 85730; 86850; 81003; 84702; 80320; 74177; G0378 ×2; J2270 ×2; J2405; J1650 ×2; J1885; Q9967

== ENCOUNTER 2025-01-06 06:43 | Day surgery (SDC) | payer OTHER ==
[2025-01-06] MEDS ORDERED: LACTATED RINGERS 1,000 ML IV SCH (07:03)
[2025-01-06 07:15] VITALS: RESP 16; TEMP 97.6
[2025-01-06] MEDS: LACTATED RINGERS 1,000 ML IV ONE (07:35)
[2025-01-06] MEDS ORDERED: PROPOFOL 10 MG/ML 20 ML VIAL IV ONE (07:36)
--- NOTE | 2025-01-06 07:54 | P.PCN ---
Date of Procedure: 01/06/25 Procedure(s) Performed: Brief history: Patient is a pleasant 39-year-old white female scheduled for an elective upper endoscopy as well as colonoscopy as a part of evaluation of lungs and history of GERD, intermittent lower abdominal pain and change in bowel habits in the last few months duration Procedure performed: Esophagogastroduodenoscopy with biopsy Colonoscopy with biopsy and snare polypectomy Preoperative diagnosis: Longstanding history of GERD Intermittent lower abdominal pain and change in bowel habits Anesthesia: MAC Procedure: After informed consent was obtained from the patient was brought into the endoscopy unit and IV sedation was administered by anesthesia under continuous monitoring. Initially upper endoscopy was done. The Olympus GF 160 video endoscope was inserted inserted into the mouth and esophagus intubated without any difficulty and was gradually advanced into the stomach and duodenum and carefully examined. The bulb and second part of the duodenum appeared normal. Biopsies were done from the duodenum to rule out celiac disease. The scope was then withdrawn into the stomach adequately insufflated with air and upon careful examination the antrum had linear areas of erythema consistent with mild antral gastritis and biopsies were done from this area. Because of the body, cardia and fundus appeared normal. The scope was then withdrawn into the esophagus. The GE junction was located at 40 cm to the incisors. It appeared regular with no erythema erosions or ulcerations. Rest of the esophagus appeared normal. Biopsies were done from the distal esophagus patient tolerated the procedure well. At this time the patient continued to remain sedation. Initial digital rectal examination was normal. Olympus CF 160 video colonoscope was then inserted into the rectum and gradually advanced to the cecum without any difficulty. Careful examination was performed as the scope was gradually being withdrawn. The prep was excellent. The cecum, appeared normal. In the ascending colon there was a 5 mm polyp removed by cold snare polypectomy. In the transverse colon there was a 3 mm polyp removed by cold biopsy. Rest of the ascending colon, transverse colon, descending colon, sigmoid colon and rectum appeared normal. Retroflexion was performed in the rectum and no lesions were noted. Patient tolerated the procedure well. Impression: 1. Upper endoscopy revealed mild antral gastritis but no evidence of esophagitis or peptic ulcer disease 2. Colonoscopy revealed a 5 mm ascending colon polyp status post cold snare polypectomy and a 3 mm transverse colon polyp status post cold biopsy Recommendations: Findings of this examination were discussed with the patient as well as her family. She was advised to follow-up with the biopsy results. Continue with Protonix 40 mg daily and follow antireflux measures. If the biopsy of the colon polyps reveal adenoma she can have repeat colonoscopy in 5 years.
[2025-01-06 08:25] VITALS: BP 99/59; PULSE 76
== END 2025-01-06 08:30 | disposition home or self-care (01) ==
LOC: ORWHC2ENDO 06:43
PROVIDERS: ATTEND Internal Medicine Gastroenterology
DX: K29.50 Unspecified chronic gastritis without bleeding (principal); K31.9 Disease of stomach and duodenum, unspecified; K21.9 Gastro-esophageal reflux disease without esophagitis; D12.2 Benign neoplasm of ascending colon; D12.3 Benign neoplasm of transverse colon; D72.820 Lymphocytosis (symptomatic); F41.9 Anxiety disorder, unspecified; F32.A Depression, unspecified; Z79.899 Other long term (current) drug therapy; Z90.49 Acquired absence of other specified parts of digestive tract; Z88.0 Allergy status to penicillin
CPT/HCPCS: 81025; 88305; 45385; 43239; J2704